=== PATIENT | female | born 1985 | race Caucasian/White ===

== ENCOUNTER 2020-09-03 17:45 | Inpatient (IN) | payer OTHER, SELFPAY ==
--- NOTE | ~2020-09-03 | CT_ITS ---
EXAMINATION: CT ABDOMEN AND PELVIS WITH CONTRAST CLINICAL INFORMATION: Epigastric abdominal pain COMPARISON: CT abdomen pelvis 07/10/2018 TECHNIQUE: Multidetector volumetric images were obtained from the superior aspect of the liver through the pubic symphysis following administration 85 mL of Omnipaque 350 intravenous contrast. Sagittal and coronal reformatted images were obtained on the technologist's workstation. Oral contrast: No This CT examination was performed using dose optimization techniques as appropriate, variously including the following: *Automated exposure control *Adjustment of mA and/or kV according to patient size (this includes techniques or standardized protocols for targeted exams where dose is matched to indication/reason for exam; i.e. extremities or head) *Use of iterative reconstruction technique DLP: 586 mGy-cm FINDINGS: LUNG BASES: The visualized lung bases are unremarkable. 2 small micronodules noted at the lung bases largest measuring 3 mm on the left (4:31). LIVER, GALLBLADDER, AND BILIARY TREE: The liver is normal in size, shape, and attenuation. No focal hepatic lesion or biliary ductal dilatation is present. Status post cholecystectomy PANCREAS: Unremarkable. SPLEEN: Unremarkable. Small splenule is present. ADRENAL GLANDS: Unremarkable. KIDNEYS AND URETERS: The kidneys are normal in size, shape, and attenuation. No hydronephrosis, hydroureter, or calculi seen. No perinephric stranding. BLADDER: Unremarkable. GASTROINTESTINAL TRACT: The small and large bowel are unremarkable. The appendix is unremarkable. ABDOMINAL WALL: No significant hernia is appreciated. There is mild diastases of the rectus muscles above the umbilicus. LYMPH NODES: No retroperitoneal lymphadenopathy. Small bilateral inguinal lymph nodes are seen. VASCULAR: Unremarkable. PELVIC VISCERA: An IUD is in good position in an anteverted uterus. A right ovarian cyst is present measuring 3.1 x 2.7 x 3.1 cm . The left ovary appears unremarkable. No free intraperitoneal fluid is present. OSSEOUS STRUCTURES: Unremarkable. CT/CT abdomen pelvis w con IMPRESSION: 1. An etiology for the patient's acute epigastric abdominal pain has not been found. 2. Wall only 2 small pulmonary micronodules, cholecystectomy, IUD in the uterus and right ovarian cyst. This cyst needs no further follow-up.
--- NOTE | ~2020-09-03 | CT_ITS ---
EXAMINATION: CT ANGIOGRAM OF THE CHEST WITH AND WITHOUT CONTRAST (CT PULMONARY ANGIOGRAM FOR PE) CLINICAL INFORMATION: Reason for Exam tachy; positive ddimer COMPARISON: None TECHNIQUE: Prior to contrast administration, noncontrast localization images were obtained. Subsequently, multidetector volumetric imaging was performed from the thoracic inlet to below the diaphragms following the administration of 65 mL Omnipaque 350 intravenous contrast. No contrast reaction reported Sagittal, coronal, and MIP oblique sagittal reformatted images were obtained on the CT workstation, uploaded to PACS, and reviewed. This CT examination was performed using dose optimization techniques as appropriate, variously including the following: *Automated exposure control *Adjustment of mA and/or kV according to patient size (this includes techniques or standardized protocols for targeted exams where dose is matched to indication/reason for exam; i.e. extremities or head) *Use of iterative reconstruction technique Total exam dose-length product 333 mGy-cm FINDINGS: QUALITY OF STUDY/CONTRAST BOLUS: Satisfactory. PULMONARY ARTERIES: No central or segmental pulmonary emboli. THORACIC AORTA: No aneurysm or dissection. LUNG: No regions of consolidation bilaterally. There is a 3 mm left lower lobe nodule on image 281/496 laterally, unchanged from 07/10/2018 and most consistent with a benign etiology. Calcified granuloma is noted in the right middle lobe. PLEURA: No pleural effusion or pneumothorax. MEDIASTINUM: Thyroid gland appears unremarkable. There are subcentimeter mediastinal lymph nodes within the range of normal variation. Cardiac size is within normal limits; no pericardial effusion. No evidence of septal bowing or right heart strain. CHEST WALL/AXILLA: No axillary or internal mammary lymphadenopathy. OSSEOUS STRUCTURES: No acute or suspicious osseous abnormality. UPPER ABDOMEN: Patient is status post cholecystectomy. No reflux of contrast into the hepatic veins to suggest elevated right heart pressures. CT/CT angio chest PE protocol IMPRESSION: No pulmonary embolus identified. VTE: negative
[2020-09-03 19:02] VITALS: BP 166/77; PULSE 121; RESP 20; TEMP 37.2; O2SAT 99; BMI 34.0
[2020-09-03 19:39] VITALS: BP 161/74; PULSE 116; RESP 16; O2SAT 99
[2020-09-03 19:44] LABS: Glucose, Whole Blood 327 mg/dL (60-115)
[2020-09-03 20:01] LABS: Basophils Percent Auto 0.1 % (0-2); Hemoglobin 13.4 g/dl (12.0-16.0); Imm Gran Abs Auto 0.06 X10*3/uL (0.00-0.03); Imm Gran Pct Auto 0.3 % (0.0-0.4); Lymphocytes Absolute Auto 0.6 X10*3/uL (1.2-4.9); Lymphocytes Percent Auto 3.3 % (20-40); MANUAL DIFF FLAG SCAN; Mean Corpuscular HGB Conc 31.9 g/dl (31.0-35.0); Mean Corpuscular Hemoglobin 26.1 pg (27.0-33.0); Mean Corpuscular Volume 81.7 fL (80-98); Mean Platelet Volume 10.3 fL (9.4-12.3); Monocytes Absolute Auto 0.4 X10*3/uL (0.1-1.2); Monocytes Percent Auto 2.5 % (2-11); Neutrophils Absolute Auto 16.3 X10*3/uL (2.0-8.3); Neutrophils Percent Auto 93.8 % (45-73); Platelet Count 415 X10*3/uL (160-400); Red Blood Count 5.14 X10*6/uL (4.20-5.50); Red Cell Distribution Width 15.2 % (11.0-16.0); SCAN SMEAR FLAG 1; White Blood Count 17.3 X10*3/uL (4.8-10.8)
[2020-09-03 20:20] LABS: SLIDE REVIEW VERIFIED
[2020-09-03 20:44] VITALS: BP 169/95; PULSE 101; RESP 17; TEMP 37.5; O2SAT 100
[2020-09-03] MEDS: 0.9 % Sodium Chloride 1,000 ML 999 ML IVCONT ×2 (20:49→23:23)
[2020-09-03 21:27] LABS: Glucose Urine UA >=1000 MG/DL (NEG); Leukocyte Esterase Urine NEG (NEG); Nitrite Urine NEG (NEG); Urine Blood 1+ (NEG); Urine Ketones 5 MG/DL (NEG); Urine Protein 3+ MG/DL (NEG-TRACE)
[2020-09-03 21:28] LABS: Appearance Urine CLEAR; Color Urine YELLOW; UPreg QC Valid YES; Urine Pregnancy NEGATIVE (NEGATIVE)
[2020-09-03 21:31] LABS: Alanine Aminotransferase 39 U/L (0-31); Albumin Level 4.8 g/dL (3.5-5.0); Alkaline Phosphatase 179 U/L (39-117); Anion Gap 18 (12-20); Aspartate Amino Transferase 19 U/L (5-31); Bilirubin Direct 0.3 mg/dL (0.0-0.5); Bilirubin Total 0.4 mg/dL (0.0-1.0); Calcium 9.5 mg/dL (8.4-10.2); Carbon Dioxide 23 mmol/L (22-29); Chloride 102 mmol/L (96-108); Creatinine Clr Calc Pharmacy 83.8; Estimated Glomerular Filt Rate > 60; Glucose Random 371 mg/dL (60-115); Lipase < 4 U/L (8-78); Potassium 4.1 mmol/L (3.3-5.1); Sodium 139 mmol/L (135-145); Total Protein 8.8 g/dL (6.5-8.0)
[2020-09-03 21:36] LABS: WBC Urine 0-2 /HPF (0-4)
[2020-09-03 21:37] LABS: Blood Urea Nitrogen 11 mg/dL (9-16)
[2020-09-03 21:37] LABS: Squamous Epithelial Cell Urine TRACE /LPF
--- NOTE | 2020-09-03 21:46 | ED.ABDPAIN ---
HPI - Abdominal Pain General Chief Complaint: Abdominal Pain Stated Complaint: vomiting Time Seen by Provider: 09/03/20 20:10 Source: patient Mode of arrival: ambulatory Limitations: no limitations History of Present Illness HPI narrative: Patient comes emergency room complaining of abdominal pain, vomiting. Patient states that all her symptoms started this morning. Patient states she has had this in the past, has history of gastroparesis due to type 1 diabetes, patient states she shut off her insulin pump because she has not been eating. Patient took at home Zofran and Reglan but did not work. Related Data Allergies Allergy/AdvReac Type Severity Reaction Status Date / Time diphenhydramine Allergy Mild ITCHY Unverified 12/12/19 17:10 [From BENADRYL] ANXIOUS ciprofloxacin [From CIPRO] Allergy Unknown UNKNOWN Unverified 12/12/19 17:10 From CIPRO Allergy Unknown UNKNOWN Uncoded 12/12/19 17:10 SHELLFISH Allergy Unknown UNKNOWN Uncoded 12/12/19 17:10 Shellfish Allergy Unknown Uncoded 08/01/18 00:00 Review of Systems Review of Systems Constitutional : No Weight loss, No Fever, No Chills, No Night Sweats, No Fatigue, No Malaise ENT/Mouth : No Hearing loss, No Ear Pain, No Nasal Congestion, No Sinus Pain, No Hoarseness, No sore throat, No Rhinorrhea, No Swallowing Difficulty Eyes: No Eye Pain, No Swelling, No Redness, No Foreign Body, No Discharge, No Vision Changes Cardiovascular : No Chest Pain, No SOB, No Dyspnea on Exertion, No Orthopnea, No Edema, No Palpitations Respiratory : No Cough, No Sputum, No Wheezing, No Smoke Exposure, No Dyspnea Gastrointestinal : Complaining of nausea and vomiting, No Diarrhea, No Constipation, complaining of diffuse abdominal pain, worse in the epigastric area, No Hematochezia, No Melena Genitourinary : no irregular bleeding, No Dysuria, No Urinary Frequency, No Hematuria, No Urinary Incontinence, No Urgency, No Flank Pain, No Urinary Flow Changes, No Hesitancy Musculoskeletal : No joint pain, No Myalgias, No Joint Swelling Skin : No Skin Lesions, No rash Neuro : No Weakness, No Numbness, No Paresthesias, No Loss of Consciousness, No Dizziness, No Headache Psych : No Anxiety/Panic, No Depression, No SI/HI/AH/VH, No Social Issues, Heme/Lymph: No Bruising, No Bleeding,No Lymphadenopathy Endocrine : No Polyuria, No Polydipsia, No Temperature Intolerance Physical Exam Vital Signs: Vital Signs: Last Vital Signs Temp 100.4 F 09/04/20 02:17 Pulse 129 H 09/04/20 02:17 Resp 17 09/04/20 02:17 BP 127/69 09/04/20 02:17 Pulse Ox 96 09/04/20 02:17 Body Mass Index 34.0 Appearance: Alert. Oriented X3. No acute distress. Looks uncomfortable Eyes: Pupils equal, round and reactive to light. ENT: Pharynx normal. Neck: Normal inspection. Neck supple. No lymph nodes noted. No crepitus CVS: Normal heart rate and rhythm. Pulses normal. Normal S1 and S2 Respiratory: No respiratory distress. Breath sounds normal. No Wheezing. No rales Abdomen: Soft , mild pain to palpation in the epigastric area. No rigidity. No distention. Skin: Skin warm and dry. Normal skin color. Normal skin turgor. Extremities: No lower extremity edema. No lower extremity edema. No Lacerations. No Rash Neuro: Oriented X 3. No motor deficit. No sensory deficit. Moving all extermities. No slurred speech. Course Course Course Narrative: Patient remains tachycardic, nauseous and vomiting despite multiple doses of IV fluids and different nausea medications. Patient denies chest pain, no shortness of breath. Abdominal pain improved but she still vomiting. I discussed the above-mentioned with our hospitalist, patient being admitted. MDM - Abdominal Pain Lab Data Result diagrams: 09/04/20 02:29 09/03/20 20:42 Labs: Lab Results 09/03/20 09/03/20 09/03/20 Range/Units 19:40 19:53 20:42 WBC 17.3 H (4.8-10.8) X10*3/uL RBC 5.14 (4.20-5.50) X10*6/uL Hgb 13.4 (12.0-16.0) g/dl Hct 42.0 (37-47) % MCV 81.7 (80-98) fL MCH 26.1 L (27.0-33.0) pg MCHC 31.9 (31.0-35.0) g/dl RDW 15.2 (11.0-16.0) % Plt Count 415 H (160-400) X10*3/uL MPV 10.3 (9.4-12.3) fL Immature Gran % (Auto) 0.3 (0.0-0.4) % Neut % (Auto) 93.8 H (45-73) % Lymph % (Auto) 3.3 L (20-40) % [place] % (Auto) 2.5 (2-11) % Eos % (Auto) 0.0 (0-4) % Baso % (Auto) 0.1 (0-2) % Lymph # (Auto) 0.6 L (1.2-4.9) X10*3/uL [place] # (Auto) 0.4 (0.1-1.2) X10*3/uL Eos # (Auto) 0.0 (0.0-0.4) X10*3/uL Baso # (Auto) 0.0 (0.0-0.2) X10*3/uL Abs Immat Gran (auto) 0.06 H (0.00-0.03) X10*3/uL Absolute Neuts (auto) 16.3 H (2.0-8.3) X10*3/uL Absolute Nucleated RBC 0.000 (0.0-0.012) X10*3/uL Nucleated RBC % (auto) 0.0 (0.0-0.2) /100WBC Smear Tech's Comments VERIFIED Sodium 139 (135-145) mmol/L Potassium 4.1 (3.3-5.1) mmol/L Chloride 102 (96-108) mmol/L Carbon Dioxide 23 (22-29) mmol/L Anion Gap 18 (12-20) BUN 11 (9-16) mg/dL Creatinine 0.87 (0.5-1.4) mg/dL Estim Creat Clear Calc 83.8 Estimated GFR > 60 POC Glucose 327 H (60-115) mg/dL Random Glucose 371 H* (60-115) mg/dL Calcium 9.5 (8.4-10.2) mg/dL Total Bilirubin 0.4 (0.0-1.0) mg/dL Direct Bilirubin 0.3 (0.0-0.5) mg/dL AST 19 (5-31) U/L ALT 39 H (0-31) U/L Alkaline Phosphatase 179 H (39-117) U/L Total Protein 8.8 H (6.5-8.0) g/dL Albumin 4.8 (3.5-5.0) g/dL Lipase < 4 L (8-78) U/L Urine Color Urine Appearance Urine pH (5.0-8.0) Ur Specific Cranberry (1.005-1.025) Urine Protein (NEG-TRACE) MG/DL Urine Glucose (UA) (NEG) MG/DL Urine Ketones (NEG) MG/DL Urine Blood (NEG) Urine Nitrite (NEG) Ur Leukocyte Esterase (NEG) Urine RBC (0) /HPF Urine WBC (0-4) /HPF Ur Squamous Epith Cells /LPF Urine Bacteria /LPF Urine Test (NEGATIVE) Acetone, Qual Negative (Negative) COVID-19 (THO) (Negative) COVID-19 Clin Com 09/03/20 09/03/20 09/04/20 Range/Units 21:17 21:17 00:14 WBC (4.8-10.8) X10*3/uL RBC (4.20-5.50) X10*6/uL Hgb (12.0-16.0) g/dl Hct (37-47) % MCV (80-98) fL MCH (27.0-33.0) pg MCHC (31.0-35.0) g/dl RDW (11.0-16.0) % Plt Count (160-400) X10*3/uL MPV (9.4-12.3) fL Immature Gran % (Auto) (0.0-0.4) % Neut % (Auto) (45-73) % Lymph % (Auto) (20-40) % [place] % (Auto) (2-11) % Eos % (Auto) (0-4) % Baso % (Auto) (0-2) % Lymph # (Auto) (1.2-4.9) X10*3/uL [place] # (Auto) (0.1-1.2) X10*3/uL Eos # (Auto) (0.0-0.4) X10*3/uL Baso # (Auto) (0.0-0.2) X10*3/uL Abs Immat Gran (auto) (0.00-0.03) X10*3/uL Absolute Neuts (auto) (2.0-8.3) X10*3/uL Absolute Nucleated RBC (0.0-0.012) X10*3/uL Nucleated RBC % (auto) (0.0-0.2) /100WBC Smear Tech's Comments Sodium (135-145) mmol/L Potassium (3.3-5.1) mmol/L Chloride (96-108) mmol/L Carbon Dioxide (22-29) mmol/L Anion Gap (12-20) BUN (9-16) mg/dL Creatinine (0.5-1.4) mg/dL Estim Creat Clear Calc Estimated GFR POC Glucose 268 H (60-115) mg/dL Random Glucose (60-115) mg/dL Calcium (8.4-10.2) mg/dL Total Bilirubin (0.0-1.0) mg/dL Direct Bilirubin (0.0-0.5) mg/dL AST (5-31) U/L ALT (0-31) U/L Alkaline Phosphatase (39-117) U/L Total Protein (6.5-8.0) g/dL Albumin (3.5-5.0) g/dL Lipase (8-78) U/L Urine Color YELLOW Urine Appearance CLEAR Urine pH 6.0 (5.0-8.0) Ur Specific Cranberry 1.020 (1.005-1.025) Urine Protein 3+ H (NEG-TRACE) MG/DL Urine Glucose (UA) >=1000 H (NEG) MG/DL Urine Ketones 5 (NEG) MG/DL Urine Blood 1+ H (NEG) Urine Nitrite NEG (NEG) Ur Leukocyte Esterase NEG (NEG) Urine RBC 1-4 (0) /HPF Urine WBC 0-2 (0-4) /HPF Ur Squamous Epith Cells TRACE /LPF Urine Bacteria NONE /LPF Urine Test NEGATIVE (NEGATIVE) Acetone, Qual (Negative) COVID-19 (THO) (Negative) COVID-19 Clin Com 09/04/20 Range/Units 01:26 WBC (4.8-10.8) X10*3/uL RBC (4.20-5.50) X10*6/uL Hgb (12.0-16.0) g/dl Hct (37-47) % MCV (80-98) fL MCH (27.0-33.0) pg MCHC (31.0-35.0) g/dl RDW (11.0-16.0) % Plt Count (160-400) X10*3/uL MPV (9.4-12.3) fL Immature Gran % (Auto) (0.0-0.4) % Neut % (Auto) (45-73) % Lymph % (Auto) (20-40) % [place] % (Auto) (2-11) % Eos % (Auto) (0-4) % Baso % (Auto) (0-2) % Lymph # (Auto) (1.2-4.9) X10*3/uL [place] # (Auto) (0.1-1.2) X10*3/uL Eos # (Auto) (0.0-0.4) X10*3/uL Baso # (Auto) (0.0-0.2) X10*3/uL Abs Immat Gran (auto) (0.00-0.03) X10*3/uL Absolute Neuts (auto) (2.0-8.3) X10*3/uL Absolute Nucleated RBC (0.0-0.012) X10*3/uL Nucleated RBC % (auto) (0.0-0.2) /100WBC Smear Tech's Comments Sodium (135-145) mmol/L Potassium (3.3-5.1) mmol/L Chloride (96-108) mmol/L Carbon Dioxide (22-29) mmol/L Anion Gap (12-20) BUN (9-16) mg/dL Creatinine (0.5-1.4) mg/dL Estim Creat Clear Calc Estimated GFR POC Glucose (60-115) mg/dL Random Glucose (60-115) mg/dL Calcium (8.4-10.2) mg/dL Total Bilirubin (0.0-1.0) mg/dL Direct Bilirubin (0.0-0.5) mg/dL AST (5-31) U/L ALT (0-31) U/L Alkaline Phosphatase (39-117) U/L Total Protein (6.5-8.0) g/dL Albumin (3.5-5.0) g/dL Lipase (8-78) U/L Urine Color Urine Appearance Urine pH (5.0-8.0) Ur Specific Cranberry (1.005-1.025) Urine Protein (NEG-TRACE) MG/DL Urine Glucose (UA) (NEG) MG/DL Urine Ketones (NEG) MG/DL Urine Blood (NEG) Urine Nitrite (NEG) Ur Leukocyte Esterase (NEG) Urine RBC (0) /HPF Urine WBC (0-4) /HPF Ur Squamous Epith Cells /LPF Urine Bacteria /LPF Urine Test (NEGATIVE) Acetone, Qual (Negative) COVID-19 (THO) Negative (Negative) COVID-19 Clin Com See Note Imaging Data CT scan - abdomen: Radiologist's impression: FINDINGS: LUNG BASES: The visualized lung bases are unremarkable. 2 small micronodules noted at the lung bases largest measuring 3 mm on the left (4:31). LIVER, GALLBLADDER, AND BILIARY TREE: The liver is normal in size, shape, and attenuation. No focal hepatic lesion or biliary ductal dilatation is present. Status post cholecystectomy PANCREAS: Unremarkable. SPLEEN: Unremarkable. Small splenule is present. ADRENAL GLANDS: Unremarkable. KIDNEYS AND URETERS: The kidneys are normal in size, shape, and attenuation. No hydronephrosis, hydroureter, or calculi seen. No perinephric stranding. BLADDER: Unremarkable. GASTROINTESTINAL TRACT: The small and large bowel are unremarkable. The appendix is unremarkable. ABDOMINAL WALL: No significant hernia is appreciated. There is mild diastases of the rectus muscles above the umbilicus. LYMPH NODES: No retroperitoneal lymphadenopathy. Small bilateral inguinal lymph nodes are seen. VASCULAR: Unremarkable. PELVIC VISCERA: An IUD is in good position in an anteverted uterus. A right ovarian cyst is present measuring 3.1 x 2.7 x 3.1 cm . The left ovary appears unremarkable. No free intraperitoneal fluid is present. OSSEOUS STRUCTURES: Unremarkable. CT/CT abdomen pelvis w con IMPRESSION: 1. An etiology for the patient's acute epigastric abdominal pain has not been found. 2. Wall only 2 small pulmonary micronodules, cholecystectomy, IUD in the uterus and right ovarian cyst. This cyst needs no further follow-up. ECG Data Attestation: I personally reviewed and interpreted this ECG as follows: (Sinus tachycardia, heart rate 118, no ST segment depression or elevation, no T-wave inversion, QTC 479) Discharge Plan Discharge Clinical Impression: Acute hyperglycemia Nausea & vomiting Qualifiers: Vomiting type: unspecified Vomiting Intractability: unspecified Qualified Code(s): R11.2 - Nausea with vomiting, unspecified Patient Disposition: Admitted As Inpatient [facility] Past Medical History Medical History Anxiety delivery delivered Depression Diabetes type I Gastroparesis Insomnia PTSD (post-traumatic stress disorder) Surgical History Hx of cholecystectomy Social History Social History Advance Directives: No Advance Directives Information Provided: No Patient : No
[2020-09-03] MEDS: Insulin Regular, Human 100 UNIT/ML 3 ML VIAL 10 UNIT IVPUSH (22:16)
[2020-09-03 22:18] VITALS: RESP 16
[2020-09-03] MEDS: Morphine Sulfate 2 MG/ML CARTRIDGE IVPUSH (22:18)
[2020-09-03] MEDS: Prochlorperazine Edisylate 10 MG/2 ML VIAL IVPUSH (22:22)
[2020-09-03] MEDS: iohexoL 350 MG/ML 100 ML INFUS..BTL 85 ML IV (23:03)
[2020-09-03 23:22] VITALS: RESP 16
--- NOTE | 2020-09-03 23:33 | PC.NURSE ---
POC 266, taken by pt via her own insulin pump notified
[2020-09-03 23:36] LABS: Acetone, serum QL Negative (Negative)
[2020-09-04] VITALS (8 sets, daily range): BP systolic 127–170; BP diastolic 69–91; PULSE 87–130; RESP 16–20; TEMP 36.1–38; O2SAT 96–100
--- NOTE | 2020-09-04 00:15 | PC.NURSE ---
JUAN FORD AWARE OF PATIENT HIGH HEART RATE .
[2020-09-04 00:19] LABS: Glucose, Whole Blood 268 mg/dL (60-115)
[2020-09-04] MEDS: Metoclopramide HCl 10 MG/2 ML VIAL IVPUSH (01:09)
[2020-09-04] MEDS: ondansetron HCL 4 MG/2 ML VIAL IVPUSH (01:22)
[2020-09-04] MEDS: 0.9 % Sodium Chloride 1,000 ML 999 ML IVCONT (01:45)
--- NOTE | 2020-09-04 01:49 | P.HPHOSP_ITS ---
History of Present Illness Date of Service: 09/04/20 Chief Complaint: Nausea and vomiting 35-year-old female with a past medical history of type 1 diabetes on insulin pump, anxiety, depression, PTSD, recent -delivered via , 4 months presented to the hospital with a chief complaint of nausea vomiting and epigastric discomfort for the past 1 day. Reports that she is unable to keep anything down. Patient reports that her insulin pump is running at basal rate and has not received any bolus doses today. Denies any chest pain lightheadedness dizziness. Denies eating outside. Denies any recent travel sick contacts. Patient reported palpitations today. Denies any shortness of breath or dyspnea on exertion. Denies any urinary symptoms. Denies any diarrhea. Review of all other systems is negative except mentioned above ER course: Per ER team patient on presentation noted to have a fingerstick glucose of 379, normal anion gap, given regular insulin 10 IV push; patient was noted to be tachycardic. CT abdomen with contrast showed no acute intra-abdominal pathology. Noted to have mild elevated transaminases. Electrolytes within normal limits creatinine within normal limits. Patient given IV fluids. Patient still noted to be tachycardic. Patient failed p.o. challenge. Admitted to the hospital for further management. [facility] Medical History Anxiety delivery delivered Depression Diabetes type I Gastroparesis Insomnia PTSD (post-traumatic stress disorder) Surgical History Hx of cholecystectomy Social History Household Members: Spouse, Family and Children Housing: Apartment Do you presently have visiting nurse or other home services: No Patient Tobacco Use Status: Never used Tobacco Use of substances other than those prescribed or required for medical reasons: No Currently Displaying Signs/Symptoms of Drug Intoxication Withdrawal: No Have you been hit, kicked, punched, or otherwise hurt by someone within the past year? If so, by whom?: No Do you feel safe in your current relationship?: Yes Is there a partner from a previous relationship who is making you feel unsafe now?: No Are you made to feel afraid or neglected: No Advance Directives: No Advance Directives Information Provided: No Do you have thoughts of harming others: None Do you have a plan to hurt others: No Plan Recently lost weight without trying: No How much weight loss: Not applicable Eating poorly because of decreased appetite: No Nutrition screen score: 0 Nutrition Risks: No Nutritional Risk Patient : No : No Poor oral hygiene: No service: No Meds Allergies Allergy/AdvReac Type Severity Reaction Status Date / Time diphenhydramine Allergy Mild ITCHY Verified 09/06/20 12:00 [From BENADRYL] ANXIOUS ciprofloxacin [From CIPRO] Allergy Unknown Anaphylaxis Verified 09/06/20 12:00 SHELLFISH Allergy Severe Anaphylaxis Uncoded 09/06/20 12:00 Shellfish Allergy Severe Anaphylaxis Uncoded 09/06/20 12:00 From CIPRO Allergy Unknown Anaphylaxis Uncoded 09/06/20 12:00 Active Medications: Current Medications Generic Name Dose Route Start Last Admin Trade Name Freq PRN Reason Stop Dose Admin Acetaminophen 650 mg 09/04/20 01:42 Acetaminophen Supp 650 Mg Supp.Rect DE Q6H PRN Pain, Mild (Pain Scale 1-3) Sodium Chloride 1,000 mls @ 999 mls/hr 09/04/20 01:41 Ns IVCONT 09/04/20 02:41 .Q1H1M ONE Dextrose/Sodium Chloride 1,000 mls @ 100 mls/hr 09/04/20 01:45 D51/2ns IVCONT .Q10H [facility] Insulin Human Lispro 0 unit 09/04/20 07:30 Insulin Lispro 100 Unit/Ml 3 Ml Vial SUBCUT QIDACHS [facility] Protocol Ondansetron HCl 4 mg 09/04/20 01:42 Ondansetron Hcl 4 Mg/2 Ml Vial IVPUSH Q8H PRN Nausea and Vomiting Sodium Chloride 3 ml 09/04/20 08:00 0.9 % Sodium Chloride Flush 3 Ml Syringe IVFLUSH QSHIFT [facility] Home Medications Medication Instructions Recorded Confirmed Last Taken Type clonidine HCl 2 - 3 tab PO BEDTIME PRN 09/04/20 09/04/20 09/02/20 History insulin lispro [Humalog U-100 0 - 67 unit SUBCUT DAILY 09/04/20 09/04/20 Unknown History Insulin] insulin pump cartridge [Omnipod 09/04/20 09/04/20 Unknown History Dash 5 Pack Pod] metoclopramide HCl 1 tab PO QID PRN 09/04/20 09/04/20 Unknown History quetiapine 0.5 tab PO BEDTIME PRN 09/04/20 09/04/20 Unknown History Physical Exam Vital Signs and Narrative: Vital Signs: Last Vital Signs Temp 98.2 F 09/04/20 00:00 Pulse 130 H 09/04/20 00:00 Resp 16 09/04/20 00:00 BP 148/83 H 09/04/20 00:00 Pulse Ox 98 09/04/20 00:00 Body Mass Index 34.0 Gen: Appears be in no acute distress HEENT: NCAT, Moist mucosa. Pulmonary: Vesicular breath sounds, fair air entry CVS: Normal S1-S2 Abdomen: BS+, Soft, tender in epigastrium Extremities: Warm well perfused Neuro: Alert and awake. Results Labs CBC and Chem 7: 09/06/20 06:31 09/06/20 06:31 Labs: Laboratory Results - last 24 hr 09/03/20 09/03/20 09/03/20 19:40 19:53 20:42 MCV 81.7 MCH 26.1 L MCHC 31.9 RDW 15.2 Plt Count 415 H MPV 10.3 Immature Gran % (Auto) 0.3 Neut % (Auto) 93.8 H Lymph % (Auto) 3.3 L [place] % (Auto) 2.5 Eos % (Auto) 0.0 Baso % (Auto) 0.1 Lymph # (Auto) 0.6 L [place] # (Auto) 0.4 Eos # (Auto) 0.0 Baso # (Auto) 0.0 Abs Immat Gran (auto) 0.06 H Absolute Neuts (auto) 16.3 H Absolute Nucleated RBC 0.000 Nucleated RBC % (auto) 0.0 Smear Tech's Comments VERIFIED Anion Gap 18 Estim Creat Clear Calc 83.8 Estimated GFR > 60 POC Glucose 327 H Random Glucose 371 H* Calcium 9.5 Total Bilirubin 0.4 Direct Bilirubin 0.3 AST 19 ALT 39 H Alkaline Phosphatase 179 H Total Protein 8.8 H Albumin 4.8 Lipase < 4 L Urine Color Urine Appearance Urine pH Ur Specific [place] Urine Protein Urine Glucose (UA) Urine Ketones Urine Blood Urine Nitrite Ur Leukocyte Esterase Urine RBC Urine WBC Ur Squamous Epith Cells Urine Bacteria Urine Test Acetone, Qual Negative 09/03/20 09/03/20 09/04/20 21:17 21:17 00:14 MCV MCH MCHC RDW Plt Count MPV Immature Gran % (Auto) Neut % (Auto) Lymph % (Auto) [place] % (Auto) Eos % (Auto) Baso % (Auto) Lymph # (Auto) [place] # (Auto) Eos # (Auto) Baso # (Auto) Abs Immat Gran (auto) Absolute Neuts (auto) Absolute Nucleated RBC Nucleated RBC % (auto) Smear Tech's Comments Anion Gap Estim Creat Clear Calc Estimated GFR POC Glucose 268 H Random Glucose Calcium Total Bilirubin Direct Bilirubin AST ALT Alkaline Phosphatase Total Protein Albumin Lipase Urine Color YELLOW Urine Appearance CLEAR Urine pH 6.0 Ur Specific [place] 1.020 Urine Protein 3+ H Urine Glucose (UA) >=1000 H Urine Ketones 5 Urine Blood 1+ H Urine Nitrite NEG Ur Leukocyte Esterase NEG Urine RBC 1-4 Urine WBC 0-2 Ur Squamous Epith Cells TRACE Urine Bacteria NONE Urine Test NEGATIVE Acetone, Qual Imaging Radiologist's Impressions: Impressions Abdomen/Pelvis CT 09/03/20 21:44 IMPRESSION: 1. An etiology for the patient's acute epigastric abdominal pain has not been found. 2. Wall only 2 small pulmonary micronodules, cholecystectomy, IUD in the uterus and right ovarian cyst. This cyst needs no further follow-up. Assessment and Plan (1) Nausea & vomiting: Qualifiers: Vomiting Intractability: unspecified Vomiting type: unspecified Qualified Code(s): R11.2 - Nausea with vomiting, unspecified Status: Acute 35-year-old female with a past medical history of type 1 diabetes on insulin pump, 4 months , for delivery recently, anxiety, depression, PTSD presented to the hospital with a chief complaint of nausea/vomiting/epigastric discomfort/Will oral intake for 1 day. Admitted for further management. Hyperglycemia: Patient does not seem to be in DKA. Patient received 10 units of regular insulin IV push in the ER, IV fluids. Fingerstick glucose improving. Patient has stopped her insulin pump prior to coming to the hospital. Type 1 diabetes: Patient on insulin pump, basal rate is running.insulin sliding scale. Once patient starts to eat, patient can be resumed on home insulin pump regimen including both doses. Nausea/vomiting/epigastric discomfort: Patient noted to have mild elevated transaminitis. Will obtain acute hepatitis panel. CT abdomen showed no acute pathology. Lipase within normal limits. Supportive care Patient is on Seroquel at home. Will check EKG to check for QTC. Tachycardia: Given 4 months ; will obtain D-dimer, keep the patient on telemetry, cycle cardiac enzymes, echocardiogram. DVT prophylaxis: SCD boots Code status: Full code
[2020-09-04 01:52] LABS: COVID-19 Test Negative (Negative); IDNOW Serial# 9DD0AD1C
--- NOTE | 2020-09-04 02:19 | PC.NURSE ---
JUAN DONOVAN AWARE OF PATIENT HIGH HEART RATE .
--- NOTE | 2020-09-04 02:27 | PC.NURSE ---
hospitalist at bedside for evaluation
[2020-09-04 02:33] LABS: MANUAL DIFF FLAG NO
[2020-09-04 02:34] LABS: Basophils Percent Auto 0.1 % (0-2); Hematocrit 32.2 % (37-47); Hemoglobin 10.5 g/dl (12.0-16.0); Imm Gran Abs Auto 0.03 X10*3/uL (0.00-0.03); Imm Gran Pct Auto 0.2 % (0.0-0.4); Lymphocytes Absolute Auto 0.7 X10*3/uL (1.2-4.9); Lymphocytes Percent Auto 4.9 % (20-40); Mean Corpuscular HGB Conc 32.6 g/dl (31.0-35.0); Mean Corpuscular Hemoglobin 26.3 pg (27.0-33.0); Mean Corpuscular Volume 80.7 fL (80-98); Mean Platelet Volume 9.4 fL (9.4-12.3); Monocytes Absolute Auto 0.7 X10*3/uL (0.1-1.2); Monocytes Percent Auto 5.2 % (2-11); Neutrophils Absolute Auto 12.1 X10*3/uL (2.0-8.3); Neutrophils Percent Auto 89.6 % (45-73); Platelet Count 332 X10*3/uL (160-400); Red Blood Count 3.99 X10*6/uL (4.20-5.50); Red Cell Distribution Width 15.1 % (11.0-16.0); White Blood Count 13.5 X10*3/uL (4.8-10.8)
[2020-09-04 02:43] LABS: D Dimer 354 NG/ML
[2020-09-04 02:51] LABS: Glucose, Whole Blood 272 mg/dL (60-115)
[2020-09-04 03:03] LABS: Troponin-I High Sensitivity < 3.5 ng/L (<3.5-17.0)
[2020-09-04] MEDS: Dextrose 5 % and 0.45 % NaCl 1,000 ML 100 ML IVCONT ×3 (03:14→22:38)
[2020-09-04 03:17] LABS: Gamma Glutamyl Transpeptidase 218 U/L (7-33)
[2020-09-04 03:36] LABS: Blood Urea Nitrogen 9 mg/dL (9-16); Carbon Dioxide 23 mmol/L (22-29); Creatinine Clr Calc Pharmacy 107.3; Estimated Glomerular Filt Rate > 60; Glucose Random 301 mg/dL (60-115)
[2020-09-04 03:55] LABS: Troponin-I High Sensitivity < 3.5 ng/L (<3.5-17.0)
--- NOTE | 2020-09-04 04:20 | PC.NURSE ---
pt heart rate maintained in the 130's. hospitalist notified.
[2020-09-04 04:30] LABS: Anion Gap 15 (12-20); Chloride 108 mmol/L (96-108); Potassium 3.8 mmol/L (3.3-5.1); Sodium 141 mmol/L (135-145)
--- NOTE | 2020-09-04 04:52 | PC.NURSE ---
nurse to nurse report given to Marian MARTINEZ
[2020-09-04] MEDS: iohexoL 350 MG/ML 100 ML INFUS..BTL 65 ML IV (05:01)
[2020-09-04] MEDS: Metoprolol Tartrate 5 MG/5 ML VIAL IVPUSH (05:20)
[2020-09-04] MEDS: LORazepam 2 MG/ML VIAL 0.5 MG IVPUSH ×2 (05:54→11:41)
[2020-09-04 07:30] LABS: Glucose, Whole Blood 307 mg/dL (60-115)
--- NOTE | 2020-09-04 07:30 | CA_ITS ---
Transthoracic Echocardiogram Patient (Last, First, Middle): Horacio Toure, Gender: Female Date of : 1985 Age: 35 Procedure Date: 09/04/2020 Procedure Type: Transthoracic Echocardiogram Location: S3W Height: 152.4 cm Weight: 78.92 kg BSA: 1.76 m2 Heart Rate: bpm BP: 163 / 89 mmHg Software Validation Technician: MARYLIN Bowser MD: Maldonado Noonan MD Medical Equipment Sales: Antonio Gomez MD Symptoms: tachycardia; 4months Study Quality: Fair ECG Rhythm: Sinus Conclusions: - Technically borderline study, however all overall appears to be within normal limits Findings Left Ventricle Normal left ventricular size, thickness, and systolic function. The visually estimated ejection fraction is >70%. Spectral Doppler is indicative of a normal filling pattern. Right Ventricle Normal right ventricular cavity size. Atria The left atrium is normal in size. Interatrial shunt cannot be excluded. The right atrium was not well visualized. Aortic Valve Normal aortic valve structure and function. There is no aortic valve stenosis. There is no aortic valve regurgitation. Mitral Valve Normal mitral valve structure and function. There is trace mitral valve regurgitation. There is no mitral valve stenosis. Pulmonic Valve The pulmonic valve was not well visualized. There is trace to mild pulmonic valve regurgitation. Tricuspid Valve Likely normal tricuspid valve structure and function. There is trace tricuspid valve regurgitation. The right ventricular systolic pressure is normal. The right ventricular systolic pressure is 20 mmHg. Normal right atrial pressure. There is no evidence of pulmonary hypertension. Great Vessels All visible segments of the aorta are normal in size. The pulmonary artery was not well visualized. Venous The inferior vena cava is normal in size and collapses greater than 50% with inspiration. Pericardium/Pleural There is no evidence of pericardial effusion. Prior Study Comparison No prior study available for comparison. Recommendations, Care & Conclusions Recommend contrast in the future to improve endocardial definition. Measurements 2D Linear Measurements IVSd: 0.89 0.6-0.9/0.6-1.0 cm LVIDd: 3.54 3.9-5.3/4.2-5.9 cm LVIDs: 1.80 2.0-3.6 cm LVPWd: 0.88 0.7-1.1 cm Ao Root: 2.48 2.1-3.5 cm LV Mass: 109.24 67-162/88-224 g LVOT Diam: 2.00 3.0+(-)1.3 cm Mitral Valve MV Pk E: 1.15 MV PK A: 1.07 MV Decel Time: 117.50 E/A: 1.08 E'Lateral: 0.14 Decel Elk: 9.82 Aortic Valve AoV Pk [place]: 1.59 AoV Mn [place]: 1.06 AoV VTI: 0.27 AoV Pk Grad: 10.10 Aov Mn Grad: 4.90 LVOT LVOT Pk [place]: 1.45 LVOT Mn [place]: 0.83 LVOT VTI: 0.25 LVOT Pk Grad: 8.38 LVOT Mn Grad: 3.28 LVOT Diam: 2.00 LVOT Area: 3.13 Diastolic Function MV Pk E: 1.15 MV Pk A: 1.07 E/A: 1.08 E' Laterial: 0.14 Tricuspid Valve TR Pk [place]: 2.07 TR Pk Grad: 17.18 RA Press: 3.00 RVSP: 20.00 Great Vessels Aorta Ao Root-2D: 2.48 2.0-3.7 cm Ao Asc: 2.51 2.1-3.4 cm Ao Arch: 2.51 Updated in Other Vendor System with Status of Final Antonio Gomez MD electronically signed on 09/04/2020 2:02:21 PM with status of Final
--- NOTE | 2020-09-04 07:32 | ECG_ITS ---
Test Reason : PALPATIONS Blood Pressure : / mmHG Vent. Rate : 118 BPM Atrial Rate : 118 BPM P-R Int : 162 ms QRS Dur : 082 ms QT Int : 342 ms P-R-T Axes : 070 080 045 degrees QTc Int : 479 ms Sinus tachycardia Otherwise normal ECG When compared with ECG of 15-SEP-2019 17:32, Vent. rate has increased BY 40 BPM Referred By: Erika Shea Electronically Signed By:RUMA VIDAL MD
--- NOTE | 2020-09-04 07:58 | PM.EVENT ---
Event Note Date of Service: 09/04/20 Event Note: Seen in f/u for nausea and vomitting that is persistant, continue hydration, antiemtics, try pepcid
--- NOTE | 2020-09-04 08:04 | PM.EVENT ---
Event Note Date of Service: 09/04/20 Event Note: Her symptoms are likely from gastroparesis
[2020-09-04 08:37] LABS: HBS Num1 0.43 mIU/mL (0-7.99); Hepatitis A Antibody IgM 0.42 Index (0-0.79); ~Hepatitis A Antibody IgM Nonreactive (Nonreactive); ~Hepatitis B Surface Antibody NONREACTIVE (Nonreactive)
[2020-09-04] MEDS: Famotidine/PF 20 MG/2 ML VIAL IVPUSH ×2 (08:45→20:41)
[2020-09-04 09:00] LABS: HBc Num1 0.28 S/CO (0.00-0.79); HBsAGNum1 0.18 S/CO (0.00-0.99); Hepatitis B Core Antibody Nonreactive (Nonreactive); Hepatitis B Surface Antigen Negative (Negative); ~Hepatitis C Antibody Nonreactive (Nonreactive)
--- NOTE | 2020-09-04 10:41 | MHC.CM.PN ---
met with pt who is independent and working cm intervention is not indicated pt has own transport home
[2020-09-04] MEDS: Subcutaneous Insulin Pump 1 EACH SUBCUT (11:35)
[2020-09-04 11:37] LABS: Glucose, Whole Blood 273 mg/dL (60-115)
--- NOTE | 2020-09-04 12:23 | MHC.CLN ---
NUTRITION NOTE PATIENT IS CURRENTLY NPO DUE TO NAUSEA AND VOMITING. WHEN DIET ADVANCED, RECOMMEND DIABETIC DIET, 1500 KCAL. PROVIDES APPROXIMATELY 27 KCAL/KG CMW.
[2020-09-04 16:17] LABS: Glucose, Whole Blood 271 mg/dL (60-115)
[2020-09-04] MEDS: Ketorolac Tromethamine 15 MG/ML VIAL IVPUSH (17:38)
[2020-09-04] MEDS: 0.9 % Sodium Chloride Flush 3 ML SYRINGE IVFLUSH (17:39)
[2020-09-04 20:13] LABS: Glucose, Whole Blood 266 mg/dL (60-115)
[2020-09-05] MEDS: LORazepam 2 MG/ML VIAL 0.5 MG IVPUSH ×3 (01:00→16:36)
[2020-09-05] MEDS: Ketorolac Tromethamine 15 MG/ML VIAL IVPUSH ×2 (01:05→07:45)
[2020-09-05 03:54] VITALS: BP 170/82; PULSE 95; RESP 16; TEMP 36.4; O2SAT 100
[2020-09-05] MEDS: ondansetron HCL 4 MG/2 ML VIAL IVPUSH ×2 (05:49→15:03)
[2020-09-05 07:20] VITALS: BP 162/77; PULSE 101; RESP 17; TEMP 36.6; O2SAT 100
[2020-09-05] MEDS: Famotidine/PF 20 MG/2 ML VIAL IVPUSH (07:45)
[2020-09-05] MEDS: Dextrose 5 % and 0.45 % NaCl 1,000 ML 100 ML IVCONT ×2 (07:45→17:22)
[2020-09-05 07:50] LABS: Glucose, Whole Blood 279 mg/dL (60-115)
--- NOTE | 2020-09-05 10:26 | PC.NURSE ---
0730- Pt POC 279, insulin pump not working correctly. Pt removed pump. Dr. Dozier made aware. to order SSI. No new orders yet. Pt has no new complaints at this time.
[2020-09-05 11:28] LABS: Glucose, Whole Blood 283 mg/dL (60-115)
--- NOTE | 2020-09-05 11:29 | P.PNIM_ITS ---
Subjective Subjective Date of Service: 09/06/20 Interval History: Seen in follow-up for nausea vomiting that is intractable. She has also complained about some epigastric pain. Her insulin pump is no longer working. Review of Systems Gen: no fever Resp: no sob, no cough CV: no chest, no MULLER, no leg edema GI: Nausea and vomiting. Neuro: No confusion Physical Exam Vital Signs: Vital Signs: Last Vital Signs Temp 97.8 F 09/05/20 07:20 Pulse 101 H 09/05/20 07:20 Resp 17 09/05/20 07:20 BP 162/77 H 09/05/20 07:20 Pulse Ox 100 09/05/20 07:20 Body Mass Index 34.0 Const: Other: Constitutional Awake and Alert, No apparent distress Neck Supple, No lymphadenopathy Cardiovascular RRR, No M/R/G, S1 S2, No S3 S4, No pedal edema Respiratory Lungs clear, No respiratory distress Gastrointestinal some epigastric tenderness, Non-distended Skin No rash Neurological Alert & oriented x3 Psychological Appropriate affect Objective Data Current Medications Generic Name Dose Route Start Last Admin Trade Name Freq PRN Reason Stop Dose Admin Acetaminophen 650 mg 09/04/20 01:42 Acetaminophen Supp 650 Mg Supp.Rect SD Q6H PRN Pain, Mild (Pain Scale 1-3) Famotidine 20 mg 09/04/20 09:00 09/05/20 07:45 Famotidine/Pf 20 Mg/2 Ml Vial IVPUSH 20 mg BID EDWIN Administration Dextrose/Sodium Chloride 1,000 mls @ 100 mls/hr 09/04/20 01:45 09/05/20 07:45 D51/2ns IVCONT 100 mls/hr .Q10H EDWIN Administration Promethazine HCl 12.5 mg/ 50.5 mls @ 202 mls/hr 09/05/20 11:21 Sodium Chloride IV Q6H PRN nausea and vomitting Insulin Human Lispro 0 unit 09/05/20 11:30 Insulin Lispro 100 Unit/Ml 3 Ml Vial SUBCUT QIDACHS [facility] [place] Protocol Insulin Pump 1 each 09/04/20 11:30 09/05/20 07:46 Subcutaneous Insulin Pump SUBCUT [facility] Protocol Ketorolac Tromethamine 15 mg 09/04/20 17:11 09/05/20 07:45 Ketorolac Tromethamine 15 Mg/Ml Vial IVPUSH 15 mg Q6H PRN Administration Nausea and Vomiting Lorazepam 0.5 mg 09/04/20 03:01 09/05/20 07:45 Lorazepam 2 Mg/Ml Vial IVPUSH 0.5 mg Q6H PRN Administration nausea/vomiting Ondansetron HCl 4 mg 09/04/20 17:10 09/05/20 05:49 Ondansetron Hcl 4 Mg/2 Ml Vial IVPUSH 4 mg Q8H PRN Administration Nausea and Vomiting Pharmacy Consult 1 each 09/04/20 08:21 Consult Rx Perform Med Rec MISCELLANE ONCE PRN Consult order Sodium Chloride 3 ml 09/04/20 08:00 09/05/20 08:10 0.9 % Sodium Chloride Flush 3 Ml Syringe IVFLUSH Not Given QSHIFT EDWIN Labs CBC & Chem 7: 09/06/20 06:31 09/06/20 06:31 Assessment and Plan (1) Nausea & vomiting: Status: Acute (2) Diabetes mellitus with gastroparesis: Status: Acute Assessment and Plan: 35 year female with insulin dependent diabetes here with intractable nausea and vomitting with some epigastric pain, no CT finding to explain this she likely has diabetes gastroparesis plan: Symptomatic treatment with antiemetic, pepcid, IVF, pain meds, GI consult. Insulin by SSI if pump is no longer working, if sugars are very high, I will addd long acting insulin.
[2020-09-05 11:42] VITALS: BP 172/86; PULSE 98; RESP 18; TEMP 36.4; O2SAT 100
[2020-09-05] MEDS: Insulin Lispro 100 UNIT/ML 3 ML VIAL SUBCUT ×3 (11:50→20:57)
[2020-09-05] MEDS: Metoclopramide HCl 10 MG TABLET PO (11:54)
--- NOTE | 2020-09-05 13:50 | PM.GICN ---
History of Present Illness Data of Consult Service Date: 09/05/20 Requesting physician: Neil Dozier Primary Care Provider: MARYAN Rodriguez HPI Reason for consult: Nausea and vomiting 35 YF with Type 1 DM, depression and PTSD seen at [facility] ED night of 09/03/2020 with nausea and vomiting: HPI narrative: Patient comes emergency room complaining of abdominal pain, vomiting. Patient states that all her symptoms started this morning. Patient states she has had this in the past, has history of gastroparesis due to type 1 diabetes, patient states she shut off her insulin pump because she has not been eating. Patient took at home Zofran and Reglan but did not work. Patient was admitted and started on IV fluids, IV Pepcid, PO metoclopramide and IV ondansetron 4 mg p.r.n. She denies significant improvement in her symptoms. H & H dropped to 10.5 & 32.2 (from 13.4 & 42 on admission) Pt had an elevated GGT and alkaline phosphatase on admission - hepatitis B and C serologies were negative. Patient complains of abdominal pain nausea vomiting for the past 2 days. Patient denies symptoms of heartburn, dysphagia, recent change in bowel habits, constipation, diarrhea, black stools or rectal bleeding. She reports history of similar episode 1 year ago her and was hospitalized at an outside facility. Episodes usually last 2-3 days and subsided after she is treated with IV fluids and antiemetics. In between episodes she denies significant symptoms other than early satiety. She usually takes 2-3 small meals daily This is her 4th episode over the past few years. Patient was diagnosed with diabetes mellitus 14 years ago and is on an insulin pump. She has a history of migraine headaches approx once a month Patient denies major cardiac or pulmonary problems, loud snoring or sleep apnea Denies being on chronic anticoagulation. She had a baby boy 4 months ago. She was on aspirin during her and discontinued after delivery. Family history is positive for migraine headaches in her mom, heart disease and diabetes. A maternal uncle was diagnosed with colon cancer at age 75 years. Her great grand mother had colon cancer in her 70s. IMAGING STUDIES: 09/03/[address] SCAN SHOWED: 1. An etiology for the patient's acute epigastric abdominal pain has not been found. 2. Wall only 2 small pulmonary micronodules, cholecystectomy, IUD in the uterus and right ovarian cyst. This cyst needs no further follow-up. PAST EGD: pt reports having an EGD and Gastric emptying study at [facility] 2 years ago and was started on Reglan once a day. Per patient EGD was normal and gastric emptying study showed gastroparesis - records were requested Records obtained and reviewed 11/2018 Gastric emptying study showed modest delay in gastric emptying with 16% activity at 04:00 hours. 12/2018 EGD showed mild gastritis. Gastric bx showed reactive changes and duodenal biopsies were normal. Review of Systems Constitutional: Constitutional: Reports chills, Reports fever(s), Denies headache(s) and Denies weight loss Eyes: Eyes: Denies eye discharge and Denies irritation ENT: Reports Normal hearing present, Denies dysphagia, Denies dizziness and Denies headache(s) Cardiovascular: Cardiovascular: Denies chest pain, Denies leg edema and Denies dyspnea on exertion Respiratory: Respiratory: Denies cough, Denies dyspnea on exertion and Denies wheezing Gastrointestinal: Gastrointestinal: Reports abdominal pain, Denies change in bowel habits, Denies dysphagia, Denies heartburn, Reports nausea and Reports vomiting Genitourinary: Genitourinary: Denies difficulty voiding and Denies dysuria Musculoskeletal: Musculoskeletal: Denies back pain and Denies arthralgias Integumentary/Breasts: Skin/Breast: Denies pruritus, Denies rash and Denies jaundice Neurologic: Reports Normal hearing present, Denies Abnormal speech present, Denies dizziness, Denies headache(s) and Denies seizure-like activity Psychiatric: Psychiatric: Denies anxiety, Reports depression and Denies panic attacks Endocrine: Endocrine: Denies cold intolerance, Denies flushing and Denies heat intolerance Hematologic/Lymphatic: Hematologic/Lymphatic: Denies easy bleeding and Denies easy bruising Allergic/Immunologic: Allergic/Immunologic: Denies wheezing PMFSH Past Medical History Medical History Anxiety delivery delivered Depression Diabetes type I Gastroparesis Insomnia PTSD (post-traumatic stress disorder) Surgical History Surgical History Hx of cholecystectomy Social History Social History Household Members: Spouse, Family and Children Housing: Apartment Do you presently have visiting nurse or other home services: No Patient Tobacco Use Status: Never used Tobacco Use of substances other than those prescribed or required for medical reasons: No Currently Displaying Signs/Symptoms of Drug Intoxication Withdrawal: No Have you been hit, kicked, punched, or otherwise hurt by someone within the past year? If so, by whom?: No Do you feel safe in your current relationship?: Yes Is there a partner from a previous relationship who is making you feel unsafe now?: No Are you made to feel afraid or neglected: No Advance Directives: No Advance Directives Information Provided: No Do you have thoughts of harming others: None Do you have a plan to hurt others: No Plan Recently lost weight without trying: No How much weight loss: Not applicable Eating poorly because of decreased appetite: No Nutrition screen score: 0 Nutrition Risks: No Nutritional Risk Patient : No : No Poor oral hygiene: No service: No Meds Allergies Allergy/AdvReac Type Severity Reaction Status Date / Time diphenhydramine Allergy Mild ITCHY Verified 09/06/20 12:00 [From BENADRYL] ANXIOUS ciprofloxacin [From CIPRO] Allergy Unknown Anaphylaxis Verified 09/06/20 12:00 SHELLFISH Allergy Severe Anaphylaxis Uncoded 09/06/20 12:00 Shellfish Allergy Severe Anaphylaxis Uncoded 09/06/20 12:00 From CIPRO Allergy Unknown Anaphylaxis Uncoded 09/06/20 12:00 Active Medications: Current Medications Generic Name Dose Route Start Last Admin Trade Name Freq PRN Reason Stop Dose Admin Acetaminophen 650 mg 09/04/20 01:42 Acetaminophen Supp 650 Mg Supp.Rect KS Q6H PRN Pain, Mild (Pain Scale 1-3) Clonidine HCl 0.2 - 0.3 mg 09/05/20 11:37 Clonidine Hcl 0.1 Mg Tablet PO BEDTIME PRN RESTLESSNESS Protocol Dextrose/Sodium Chloride 1,000 mls @ 100 mls/hr 09/04/20 01:45 09/05/20 07:45 D51/2ns IVCONT 100 mls/hr .Q10H EDWIN Administration Promethazine HCl 12.5 mg/ 50.5 mls @ 202 mls/hr 09/05/20 11:21 Sodium Chloride IV Q6H PRN nausea and vomitting Insulin Human Lispro 0 unit 09/05/20 11:30 09/05/20 11:50 Insulin Lispro 100 Unit/Ml 3 Ml Vial SUBCUT 6 unit QIDACHS EDWIN Administration Protocol Lorazepam 0.5 mg 09/04/20 03:01 09/05/20 07:45 Lorazepam 2 Mg/Ml Vial IVPUSH 0.5 mg Q6H PRN Administration nausea/vomiting Metoclopramide HCl 10 mg 09/05/20 11:37 09/05/20 11:54 Metoclopramide Hcl 10 Mg Tablet PO 10 mg QID PRN Administration Abdominal Discomfort Morphine Sulfate 2 mg 09/05/20 11:40 Morphine Sulfate 2 Mg/Ml Cartridge IVPUSH Q6H PRN Nausea and Vomiting Ondansetron HCl 4 mg 09/04/20 17:10 09/05/20 05:49 Ondansetron Hcl 4 Mg/2 Ml Vial IVPUSH 4 mg Q8H PRN Administration Nausea and Vomiting Pantoprazole Sodium 40 mg 09/05/20 12:10 09/05/20 12:57 Pantoprazole Sodium 40 Mg/10 Ml Vial IVPUSH Not Given BID@0630,1630 [facility] Consult 1 each 09/04/20 08:21 Consult Rx Perform Med Rec MISCELLANE ONCE PRN Consult order Quetiapine Fumarate 50 mg 09/05/20 11:37 Quetiapine Fumarate 50 Mg Tablet PO BEDTIME PRN RESTLESSNESS Sodium Chloride 3 ml 09/04/20 08:00 09/05/20 08:10 0.9 % Sodium Chloride Flush 3 Ml Syringe IVFLUSH Not Given QSHIFT [facility] Home Medications Medication Instructions Recorded Confirmed Last Taken Type clonidine HCl 2 - 3 tab PO BEDTIME PRN 09/04/20 09/04/20 09/02/20 History insulin lispro [Humalog U-100 0 - 67 unit SUBCUT DAILY 09/04/20 09/04/20 Unknown History Insulin] insulin pump cartridge [Omnipod 09/04/20 09/04/20 Unknown History Dash 5 Pack Pod] metoclopramide HCl 1 tab PO QID PRN 09/04/20 09/04/20 Unknown History quetiapine 0.5 tab PO BEDTIME PRN 09/04/20 09/04/20 Unknown History Physical Exam Vital Signs: Vital Signs: Last Vital Signs Temp 97.6 F 09/05/20 11:42 Pulse 98 09/05/20 11:42 Resp 18 09/05/20 11:42 BP 172/86 H 09/05/20 11:42 Pulse Ox 100 06/12/21 11:42 Body Mass Index 34.0 Const: General: healthy appearing, awake and in distress (due to nausea and vomiting) Nutritional Appearance: obese Orientation/consciousness: patient oriented x3 Limitations: no limitations HENMT: Head: Yes normal to inspection Ears: hearing grossly normal bilaterally Mouth: Normal oral and palatal mucosa present Eyes: Sclerae: sclerae normal Pupils: Equal, round and reactive pupils present Neck: Neck: Yes normal visual inspection Chest: Chest palpation & inspection: normal inspection of the chest Resp: Effort & Inspection: normal respiratory effort Auscultation: clear to auscultation bilaterally Cardio: Palpation: normal PMI Rate: regular rate Rhythm: regular rhythm Heart sounds: S1 normal heart sound present, S2 normal heart sound present and no murmurs GI: Palpation (GI): Soft to palpation, Tenderness to palpation present (GI) (Mild upper abdominal tenderness) and No hepatosplenomegaly present Auscultation: normal bowel sounds Rectal Exam - Female: deferred Skin: General skin exam: no rashes or lesions noted Neuro: General: patient oriented x3, gait normal and moves all extremities Cranial nerves: Yes Equal, round and reactive pupils present and Yes Normal hearing present Speech: No Abnormal speech present Psych: Appearance: grossly normal Mental Status: mental status grossly normal Results Labs CBC & Chem 7: 09/06/20 06:31 09/06/20 06:31 Assessment and Plan (1) Diabetes mellitus with gastroparesis: Status: Acute (2) Nausea & vomiting: Qualifiers: Vomiting Intractability: unspecified Vomiting type: unspecified Qualified Code(s): R11.2 - Nausea with vomiting, unspecified Status: Acute 35 YF with Type 1 DM, depression and PTSD admitted with 2 day hx of abd pain, nausea and vomiting. Patient has had similar episode in the past usually once a year. Per patient gastric emptying study at [facility] a year ago showed gastroparesis in she was started on metoclopramide months a day. 11/2018 Gastric emptying study showed modest delay in gastric emptying with 16% activity at 04:00 hours. 12/2018 EGD showed mild gastritis. Gastric bx showed reactive changes and duodenal biopsies were normal. Her symptoms are likely a combination of gastroparesis and cyclic vomiting syndrome. Lab studies show anemia (likely nutritional related to recent ) and elevated GGT and AP RECOMMENDATIONS: 1. Change pepcid to IV PPI twice daily 2. Increase ondansetron to 8 mg IV Q 6-8 hourly (max 24 hr dose of 32 mg) 3. Monitor her symptoms over next 24 - 48 hrs. If no improvement I will schedule her for an upper endoscopy on 4. Iron studies, Vitamin B12 and folate levels - added to am labs 5. Once symptoms improve, encourage frequent small feedings with low-fat foods for nutritional rehabilitation Procedures Date of Service Date of Service: 09/05/20
--- NOTE | 2020-09-05 14:25 | PC.NURSE ---
1145- Pt BP has been running high, last BP 172/86, pulse 98. Dr. Dozier made aware. No new orders at this time.
[2020-09-05] MEDS: Morphine Sulfate 2 MG/ML CARTRIDGE IVPUSH ×2 (15:04→21:08)
[2020-09-05] MEDS: 0.9 % Sodium Chloride Flush 3 ML SYRINGE IVFLUSH (15:04)
[2020-09-05 15:22] VITALS: BP 165/82; PULSE 99; RESP 20; TEMP 36.6; O2SAT 98
[2020-09-05 16:17] LABS: Glucose, Whole Blood 259 mg/dL (60-115)
[2020-09-05] MEDS: Pantoprazole Sodium 40 MG/10 ML VIAL IVPUSH (16:36)
[2020-09-05 19:13] VITALS: BP 165/82; PULSE 99; RESP 20; TEMP 36.6; O2SAT 100
[2020-09-05 20:19] LABS: Glucose, Whole Blood 245 mg/dL (60-115)
[2020-09-06] VITALS (7 sets, daily range): BP systolic 132–171; BP diastolic 70–87; PULSE 94–104; RESP 14–18; TEMP 35.8–36.7; O2SAT 98–100
[2020-09-06] MEDS: Dextrose 5 % and 0.45 % NaCl 1,000 ML 100 ML IVCONT ×3 (02:35→23:53)
[2020-09-06] MEDS: Morphine Sulfate 2 MG/ML CARTRIDGE IVPUSH ×3 (04:35→17:59)
[2020-09-06] MEDS: LORazepam 2 MG/ML VIAL 0.5 MG IVPUSH (04:36)
[2020-09-06] MEDS: Pantoprazole Sodium 40 MG/10 ML VIAL IVPUSH ×2 (05:44→17:35)
[2020-09-06 07:25] LABS: Glucose, Whole Blood 288 mg/dL (60-115)
[2020-09-06 07:39] LABS: Iron 100 mcg/dL (30-160); Percent Iron Saturation 23 % (15-50); Total Iron Binding Capacity 443 mcg/dL (228-428); Unsaturated Iron Binding 343 ug/dL
[2020-09-06 08:00] LABS: Ferritin 49 ng/mL (10-122)
[2020-09-06 08:15] LABS: Hematocrit 40.6 % (37-47); Hemoglobin 13.4 g/dl (12.0-16.0); Mean Corpuscular Hemoglobin 26.5 pg (27.0-33.0); Mean Corpuscular Volume 80.4 fL (80-98); Mean Platelet Volume 9.8 fL (9.4-12.3); Platelet Count 365 X10*3/uL (160-400); Red Blood Count 5.05 X10*6/uL (4.20-5.50); Red Cell Distribution Width 14.6 % (11.0-16.0); White Blood Count 12.4 X10*3/uL (4.8-10.8)
[2020-09-06] MEDS: Metoclopramide HCl 10 MG TABLET PO ×3 (08:19→18:51)
[2020-09-06] MEDS: Insulin Lispro 100 UNIT/ML 3 ML VIAL SUBCUT ×4 (08:19→20:34)
[2020-09-06 08:27] LABS: Anion Gap 14 (12-20); Blood Urea Nitrogen 8 mg/dL (9-16); Calcium 9.3 mg/dL (8.4-10.2); Carbon Dioxide 25 mmol/L (22-29); Chloride 99 mmol/L (96-108); Estimated Glomerular Filt Rate > 60; Glucose Random 278 mg/dL (60-115); Potassium 3.7 mmol/L (3.3-5.1); Sodium 134 mmol/L (135-145)
[2020-09-06 11:38] LABS: Glucose, Whole Blood 249 mg/dL (60-115)
--- NOTE | 2020-09-06 11:43 | HO.PM.IMPN ---
Subjective Subjective Date of Service: 09/06/20 Interval History: Seen in follow-up for nausea vomiting that is intractable. Nause and vomitting is better and wants to try clear liquid diet Review of Systems Gen: no fever Resp: no sob, no cough CV: no chest, no MULLER, no leg edema GI: Nausea and vomiting. Neuro: No confusion Physical Exam Vital Signs: Vital Signs: Last Vital Signs Temp 98.0 F 09/06/20 07:20 Pulse 104 H 09/06/20 07:20 Resp 17 09/06/20 07:20 BP 171/81 H 09/06/20 07:20 Pulse Ox 98 09/06/20 07:20 Body Mass Index 34.0 Const: Other: Constitutional Awake and Alert, No apparent distress Neck Supple, No lymphadenopathy Cardiovascular RRR, No M/R/G, S1 S2, No S3 S4, No pedal edema Respiratory Lungs clear, No respiratory distress Gastrointestinal some epigastric tenderness, Non-distended Skin No rash Neurological Alert & oriented x3 Psychological Appropriate affect Objective Data Current Medications Generic Name Dose Route Start Last Admin Trade Name Poolq PRN Reason Stop Dose Admin Acetaminophen 650 mg 09/04/20 01:42 Acetaminophen Supp 650 Mg Supp.Rect NM Q6H PRN Pain, Mild (Pain Scale 1-3) Clonidine HCl 0.2 - 0.3 mg 09/05/20 11:37 Clonidine Hcl 0.1 Mg Tablet PO BEDTIME PRN RESTLESSNESS Protocol Dextrose/Sodium Chloride 1,000 mls @ 100 mls/hr 09/04/20 01:45 09/06/20 02:35 D51/2ns IVCONT 100 mls/hr .Q10H EDWIN Administration Promethazine HCl 12.5 mg/ 50.5 mls @ 202 mls/hr 09/05/20 11:21 09/06/20 03:00 Sodium Chloride IV Infused Q6H PRN Infusion nausea and vomitting Insulin Human Lispro 0 unit 09/05/20 11:30 09/06/20 08:19 Insulin Lispro 100 Unit/Ml 3 Ml Vial SUBCUT 6 unit QIDACHS EDWIN Administration Protocol Lorazepam 0.5 mg 09/04/20 03:01 09/06/20 04:36 Lorazepam 2 Mg/Ml Vial IVPUSH 0.5 mg Q6H PRN Administration nausea/vomiting Metoclopramide HCl 10 mg 09/05/20 11:37 09/06/20 08:19 Metoclopramide Hcl 10 Mg Tablet PO 10 mg QID PRN Administration Abdominal Discomfort Morphine Sulfate 2 mg 09/05/20 11:40 09/06/20 04:35 Morphine Sulfate 2 Mg/Ml Cartridge IVPUSH 2 mg Q6H PRN Administration Nausea and Vomiting Ondansetron HCl 4 mg 09/04/20 17:10 09/05/20 15:03 Ondansetron Hcl 4 Mg/2 Ml Vial IVPUSH 4 mg Q8H PRN Administration Nausea and Vomiting Pantoprazole Sodium 40 mg 09/05/20 12:10 09/06/20 05:44 Pantoprazole Sodium 40 Mg/10 Ml Vial IVPUSH 40 mg BID@0630,1630 [facility] Administration Pharmacy Consult 1 each 09/04/20 08:21 Consult Rx Perform Med Rec MISCELLANE ONCE PRN Consult order Quetiapine Fumarate 50 mg 09/05/20 11:37 Quetiapine Fumarate 50 Mg Tablet PO BEDTIME PRN RESTLESSNESS Sodium Chloride 3 ml 09/04/20 08:00 09/06/20 08:19 0.9 % Sodium Chloride Flush 3 Ml Syringe IVFLUSH Not Given QSHIFT [facility] Labs CBC & Chem 7: 09/06/20 06:31 09/06/20 06:31 Assessment and Plan (1) Nausea & vomiting: Status: Acute (2) Diabetes mellitus with gastroparesis: Status: Acute Assessment and Plan: 35 year female with insulin dependent diabetes here with intractable nausea and vomitting with some epigastric pain, no CT finding to explain this she likely has diabetes gastroparesis plan: Symptomatic treatment with antiemetic, pepcid, IVF, pain meds, GI will performed EGD tomorrow Insulin by SSI while pump is off, if sugars are very high once eating, I will addd long acting insulin.
[2020-09-06] MEDS: ondansetron HCL 4 MG/2 ML VIAL IVPUSH ×2 (11:55→20:35)
[2020-09-06 16:12] LABS: Glucose, Whole Blood 235 mg/dL (60-115)
[2020-09-06 20:29] LABS: Glucose, Whole Blood 265 mg/dL (60-115)
[2020-09-07] VITALS (7 sets, daily range): BP systolic 121–172; BP diastolic 59–96; PULSE 94–111; RESP 14–18; TEMP 36.3–36.7; O2SAT 98–100
[2020-09-07] MEDS: Morphine Sulfate 2 MG/ML CARTRIDGE IVPUSH ×3 (00:25→21:36)
[2020-09-07 04:38] LABS: Folate 14.8 ng/mL (> or = 4.0); Vitamin B12 322 pg/mL (200-900)
[2020-09-07] MEDS: Pantoprazole Sodium 40 MG/10 ML VIAL IVPUSH ×2 (06:34→20:20)
[2020-09-07 07:25] LABS: Glucose, Whole Blood 275 mg/dL (60-115)
[2020-09-07] MEDS: Insulin Lispro 100 UNIT/ML 3 ML VIAL SUBCUT ×4 (08:29→21:37)
[2020-09-07] MEDS: 0.9 % Sodium Chloride Flush 3 ML SYRINGE IVFLUSH (08:29)
[2020-09-07] MEDS: ondansetron HCL 4 MG/2 ML VIAL IVPUSH ×2 (08:29→21:41)
[2020-09-07] MEDS: Dextrose 5 % and 0.45 % NaCl 1,000 ML 100 ML IVCONT (11:24)
[2020-09-07 11:52] LABS: Glucose, Whole Blood 259 mg/dL (60-115)
[2020-09-07 12:00] LABS: Calcium 8.9 mg/dL (8.4-10.2)
[2020-09-07 12:04] LABS: Anion Gap 11 (12-20); Blood Urea Nitrogen 8 mg/dL (9-16); Carbon Dioxide 25 mmol/L (22-29); Chloride 104 mmol/L (96-108); Creatinine Clr Calc Pharmacy 112.2; Estimated Glomerular Filt Rate > 60; Glucose Random 266 mg/dL (60-115); Potassium 3.2 mmol/L (3.3-5.1); Sodium 137 mmol/L (135-145)
[2020-09-07 16:41] LABS: Glucose, Whole Blood 216 mg/dL (60-115)
[2020-09-07] MEDS: Metoclopramide HCl 10 MG TABLET PO (16:58)
--- NOTE | 2020-09-07 18:20 | P.PNIM_ITS ---
Subjective Subjective Date of Service: 09/07/20 Interval History: She is feeling a little noxious, tolerated some liquid diet Review of Systems Gen: no fever Resp: no sob, no cough CV: no chest, no MULLER, no leg edema GI: + n/v, no abd pain Neuro: No confusion Physical Exam Vital Signs: Vital Signs: Last Vital Signs Temp 98.1 F 09/07/20 15:25 Pulse 94 09/07/20 15:25 Resp 16 09/07/20 15:25 BP 149/78 H 09/07/20 15:25 Pulse Ox 100 09/07/20 15:25 Body Mass Index 34.0 Const: Other: General: AO X 3, no acute distress Resp: CTA bilateral CVS: S1,S2,RRR GI: +BS, NT, no distention Skin: No rash Neuro: motor grossly intact Psych: appropriate affect Objective Data Current Medications Generic Name Dose Route Start Last Admin Trade Name Freq PRN Reason Stop Dose Admin Acetaminophen 650 mg 09/04/20 01:42 Acetaminophen Supp 650 Mg Supp.Rect [place] Q6H PRN Pain, Mild (Pain Scale 1-3) Clonidine HCl 0.2 - 0.3 mg 09/05/20 11:37 Clonidine Hcl 0.1 Mg Tablet PO BEDTIME PRN RESTLESSNESS Protocol Promethazine HCl 12.5 mg/ 50.5 mls @ 202 mls/hr 09/05/20 11:21 09/07/20 12:59 Sodium Chloride IV Infused Q6H PRN Infusion nausea and vomitting Dextrose/Sodium Chloride 1,000 mls @ 100 mls/hr 09/07/20 11:00 09/07/20 11:24 D51/2ns IVCONT 100 mls/hr .Q10H EDWIN Administration Insulin Human Lispro 0 unit 09/05/20 11:30 09/07/20 16:48 Insulin Lispro 100 Unit/Ml 3 Ml Vial SUBCUT 6 unit QIDACHS EDWIN Administration Protocol Lorazepam 0.5 mg 09/04/20 03:01 09/06/20 04:36 Lorazepam 2 Mg/Ml Vial IVPUSH 0.5 mg Q6H PRN Administration nausea/vomiting Metoclopramide HCl 10 mg 09/05/20 11:37 09/07/20 16:58 Metoclopramide Hcl 10 Mg Tablet PO 10 mg QID PRN Administration Abdominal Discomfort Morphine Sulfate 2 mg 09/05/20 11:40 09/07/20 12:33 Morphine Sulfate 2 Mg/Ml Cartridge IVPUSH 2 mg Q6H PRN Administration Nausea and Vomiting Ondansetron HCl 4 mg 09/04/20 17:10 09/07/20 08:29 Ondansetron Hcl 4 Mg/2 Ml Vial IVPUSH 4 mg Q8H PRN Administration Nausea and Vomiting Pantoprazole Sodium 40 mg 09/05/20 12:10 09/07/20 06:34 Pantoprazole Sodium 40 Mg/10 Ml Vial IVPUSH 40 mg BID@7850,5630 [facility] Administration Pharmacy Consult 1 each 09/04/20 08:21 Consult Rx Perform Med Rec MISCELLANE ONCE PRN Consult order Quetiapine Fumarate 50 mg 09/05/20 11:37 Quetiapine Fumarate 50 Mg Tablet PO BEDTIME PRN RESTLESSNESS Sodium Chloride 3 ml 09/04/20 08:00 09/07/20 08:29 0.9 % Sodium Chloride Flush 3 Ml Syringe IVFLUSH 3 ml QSHIFT [facility] Administration Labs CBC & Chem 7: 09/06/20 06:31 09/07/20 10:57 Labs: Laboratory Results - last 24 hr 09/06/20 09/06/20 09/07/20 06:31 20:26 07:19 Sodium Potassium Chloride Carbon Dioxide Anion Gap BUN Creatinine Estim Creat Clear Calc Estimated GFR POC Glucose 265 H 275 H Random Glucose Calcium Vitamin B12 322 Folate 14.8 09/07/20 09/07/20 09/07/20 10:57 11:35 16:37 Sodium 137 Potassium 3.2 L Chloride 104 Carbon Dioxide 25 Anion Gap 11 L BUN 8 L Creatinine 0.65 Estim Creat Clear Calc 112.2 Estimated GFR > 60 POC Glucose 259 H 216 H Random Glucose 266 H Calcium 8.9 Vitamin B12 Folate Assessment and Plan (1) Nausea & vomiting: Status: Acute (2) Diabetes mellitus with gastroparesis: Status: Acute Assessment and Plan: 35 year female with insulin dependent diabetes here with intractable nausea and vomitting with some epigastric pain, no CT finding to explain this she likely has diabetes gastroparesis plan: Symptomatic treatment with antiemetic, pepcid, IVF, pain meds, GI will performed EGD tomorrow Insulin by SSI while pump is off, if sugars are very high once eating, I will addd long acting insulin. Low potassium of 3.2, K in IVF
[2020-09-07] MEDS: KCl 20 mEq in 0.45% Sod 20 MEQ/1,000 ML IV.SOLN 100 MEQ IVCONT (20:20)
[2020-09-07 20:35] LABS: Glucose, Whole Blood 205 mg/dL (60-115)
[2020-09-08] VITALS: BP 122/74; PULSE 114; RESP 16; TEMP 36.9; O2SAT 99
[2020-09-08 04:00] VITALS: BP 145/92; PULSE 97; RESP 16; TEMP 37.2; O2SAT 97
[2020-09-08] MEDS: Pantoprazole Sodium 40 MG/10 ML VIAL IVPUSH (06:00)
[2020-09-08] MEDS: KCl 20 mEq in 0.45% Sod 20 MEQ/1,000 ML IV.SOLN 100 MEQ IVCONT (06:02)
[2020-09-08 07:21] VITALS: BP 118/65; PULSE 92; RESP 17; TEMP 37.4; O2SAT 98
[2020-09-08] MEDS: Insulin Lispro 100 UNIT/ML 3 ML VIAL SUBCUT ×2 (07:42→11:41)
[2020-09-08] MEDS: 0.9 % Sodium Chloride Flush 3 ML SYRINGE IVFLUSH (07:43)
[2020-09-08 07:44] LABS: Glucose, Whole Blood 179 mg/dL (60-115)
--- NOTE | 2020-09-08 08:24 | MHC.CM.PN ---
PATIENT IS DISCHARGED HOME WITH NO NEED FOR SERVICES. SHE HAS HER OWN TRANSPORT HOME. RN AWARE OF PLAN.
[2020-09-08 08:54] LABS: Anion Gap 12 (12-20); Blood Urea Nitrogen 8 mg/dL (9-16); Calcium 8.2 mg/dL (8.4-10.2); Carbon Dioxide 20 mmol/L (22-29); Chloride 108 mmol/L (96-108); Creatinine Clr Calc Pharmacy 121.6; Estimated Glomerular Filt Rate > 60; Glucose Random 196 mg/dL (60-115); Potassium 3.4 mmol/L (3.3-5.1); Sodium 137 mmol/L (135-145)
--- NOTE | 2020-09-08 11:09 | PM.DS ---
DS: Providers Provider Date of Service: 09/08/20 Date of admission: 09/04/20 01:42 Primary care physician: MARYAN Rodriguez Consults: 09/05/20 11:23 Consult to Gastroenterology Routine Consulting Provider: Nasima Dan Reason for consultation: Abdominal pain with intractable nausea and vomitting DS: Diagnosis Discharge Diagnosis (1) Nausea & vomiting: Status: Acute (2) Diabetes mellitus with gastroparesis: Status: Acute DS: Medications Discharge Medications Home Medications: Home Medications Medication Instructions Recorded Confirmed Omnipod Dash 5 Pack Pod 09/04/20 09/04/20 clonidine HCl 2 - 3 tab PO BEDTIME PRN 09/04/20 09/04/20 insulin lispro [Humalog U-100 0 - 67 unit SUBCUT DAILY 09/04/20 09/04/20 Insulin] metoclopramide HCl 1 tab PO QID PRN 09/04/20 09/04/20 quetiapine 0.5 tab PO BEDTIME PRN 09/04/20 09/04/20 Previous Rx's Medication Instructions Recorded ondansetron 4 mg PO Q8H PRN 10 Days tab 09/07/20 DS: Summary Hospital Course Hospital Course: Patient was admitted was admitted due to nausea and vomitting in setting of longstanding diabetes and gastroparesis. She was managed with IVF and antiemtics and was seen by GI but no intervention done and over the course of hospitazlation, her diet was advanced and now is tolerating regular diet. She will follow up with Dr. Dan of GI and if symptoms persists, she might benefit from EGD. Her dibetes was managed with insulin in the hospital as her pump ceased to function, she has assured me that she has a replacement at home. Her potassium was slightly low but has corrected with IV replacement through IVF Time Spent with Patient Time attestation: Total time spent providing and/or coordinating discharge services: Discharge coordination time: Greater than 30 minutes Quality: Stroke Does the patient have a stroke diagnosis?: No Physical Exam Vital Signs: Vital Signs: Last Vital Signs Temp 99.3 F 09/08/20 07:21 Pulse 92 09/08/20 07:21 Resp 17 09/08/20 07:21 BP 118/65 09/08/20 07:21 Pulse Ox 98 09/08/20 07:21 Body Mass Index 34.0 General: AO X 3, no acute distress Resp: CTA bilateral CVS: S1,S2,RRR GI: +BS, NT, no distention Skin: No rash Neuro: motor grossly intact Psych: appropriate affect DS: Data Data Completed and Pending Labs on day of discharge: Laboratory Results - last 24 hr 09/07/20 09/07/20 09/07/20 10:57 11:35 16:37 Sodium 137 Potassium 3.2 L Chloride 104 Carbon Dioxide 25 Anion Gap 11 L BUN 8 L Creatinine 0.65 Estim Creat Clear Calc 112.2 Estimated GFR > 60 POC Glucose 259 H 216 H Random Glucose 266 H Calcium 8.9 09/07/20 09/08/20 09/08/20 20:31 07:11 07:20 Sodium 137 Potassium 3.4 Chloride 108 Carbon Dioxide 20 L Anion Gap 12 BUN 8 L Creatinine 0.60 Estim Creat Clear Calc 121.6 Estimated GFR > 60 POC Glucose 205 H 179 H Random Glucose 196 H Calcium 8.2 L D Discharge Plan Discharge Anticipated Discharge Date/Time: 09/08/20 11:07 Patient Disposition: Home, Self-Care Discharge Diagnosis: Diabetes gastroparesis Referrals: Ariane West PA [Primary Care Provider] - 1 Week Discharge Medications: New ondansetron 4 mg tablet,disintegrating 4 mg PO Q8H PRN (Reason: nausea and vomiting) 10 Days RF: 0 Continued clonidine HCl 0.1 mg tablet 2 - 3 tab PO BEDTIME PRN (Reason: RESTLESSNESS) RF: 0 quetiapine 100 mg tablet 0.5 tab PO BEDTIME PRN (Reason: RESTLESSNESS) RF: 0 insulin lispro [Humalog U-100 Insulin] 100 unit/mL solution 0 - 67 unit subcut DAILY RF: 0 metoclopramide HCl 10 mg tablet 1 tab PO QID PRN (Reason: Abdominal Discomfort) RF: 0 (DME) Omnipod Dash 5 Pack Pod Cartridge subcut RF: 0 Discharge Orders: Discharge Order (Routine); Ordered 09/07/20 Ordered By: Neil Dozier Diet: advance to usual diet and diabetic diet Activity on Discharge: As tolerated Stand Alone Forms: Patient Portal Discharge page Care Plan Goals: prevent rehospitalization Health Concerns: diabetes with gastroparesis, nause and vomitting Plan of Treatment: Take your medication as recommended and follow up with your Dcotor in a week Assessment: See above
[2020-09-08 11:20] LABS: Glucose, Whole Blood 239 mg/dL (60-115)
[2020-09-08] MEDS: Metoclopramide HCl 10 MG TABLET PO (11:40)
[2020-09-08 12:00] VITALS: BP 114/73; PULSE 104; RESP 18; TEMP 36.8; O2SAT 98
== END 2020-09-08 15:44 | disposition home or self-care (01) | DRG 74 ==
LOC: HO.ED 09-04 01:45 → HO.EDOVER 09-04 02:18 → HO.S3 09-04 04:29
PROVIDERS: Internal Medicine Gastroenterology; Admitting Provider Hospitalist; Emergency Provider Emergency Medicine; PCP Physician Assistant; Visit Provider Internal Medicine
DX: E10.43 Type 1 diabetes mellitus with diabetic autonomic (poly)neuropathy (principal); E10.65 Type 1 diabetes mellitus with hyperglycemia; F43.10 Post-traumatic stress disorder, unspecified; Z96.41 Presence of insulin pump (external) (internal); K31.84 Gastroparesis; Z20.822 Contact with and (suspected) exposure to COVID-19; Z79.4 Long term (current) use of insulin; Z79.899 Other long term (current) drug therapy
CPT/HCPCS: 36415; 71275; 74177; 80048; 80053; 80076; 81001; 81003; 81025; 82009; 82607; 82728; 82746; 82947; 82977; 83540; 83690; 83880; 84484; 85025; 85027; 85379; 86704; 86706; 86709; 86803; 87340; 87635; 93005; 93306; 99285; J1885; J2060; J2270; J2405; J2550; J2765; Q9967

== ENCOUNTER 2021-08-13 10:13 | Inpatient (IN) | payer OTHER, SELFPAY ==
[2021-08-13 10:30] VITALS: BP 119/80; PULSE 72; RESP 16; TEMP 37; O2SAT 99; BMI 33.2
[2021-08-13 14:40] VITALS: BP 174/88; PULSE 79; RESP 17; TEMP 37.2; O2SAT 100
[2021-08-13] MEDS: ondansetron HCL 4 MG/2 ML VIAL IVPUSH (15:27)
[2021-08-13] MEDS: 0.9 % Sodium Chloride 1,000 ML 999 ML IV (15:28)
[2021-08-13 15:34] LABS: Basophils Percent Auto 0.1 % (0-2); Hematocrit 41.3 % (37.0-47.0); Hemoglobin 14.2 g/dl (12.0-16.0); Imm Gran Abs Auto 0.09 X10*3/uL (0.00-0.03); Imm Gran Pct Auto 0.5 % (0.0-0.4); Lymphocytes Absolute Auto 0.4 X10*3/uL (1.2-4.9); Lymphocytes Percent Auto 2.4 % (20-40); MANUAL DIFF FLAG SCAN; Mean Corpuscular HGB Conc 34.4 g/dl (31.0-35.0); Mean Corpuscular Hemoglobin 30.2 pg (27.0-33.0); Mean Corpuscular Volume 87.9 fL (80.0-98.0); Mean Platelet Volume 9.8 fL (9.4-12.3); Monocytes Absolute Auto 0.3 X10*3/uL (0.1-1.2); Monocytes Percent Auto 1.4 % (2-11); Neutrophils Absolute Auto 17.2 x10*3/uL (2.0-8.3); Neutrophils Percent Auto 95.6 % (45-73); Platelet Count 337 X10*3/uL (160-400); Red Cell Distribution Width 12.8 % (11.0-16.0); SCAN SMEAR FLAG 1
[2021-08-13 15:56] LABS: Alanine Aminotransferase 49 U/L (0-31); Albumin Level 4.6 g/dL (3.5-5.0); Alkaline Phosphatase 172 U/L (39-117); Anion Gap 19 (12-20); Aspartate Amino Transferase 30 U/L (5-31); Bilirubin Direct 0.5 mg/dL (0.0-0.5); Bilirubin Total 1.2 mg/dL (0.0-1.0); Blood Urea Nitrogen 6 mg/dL (9-16); Calcium 9.6 mg/dL (8.4-10.2); Carbon Dioxide 20 mmol/L (22-29); Chloride 102 mmol/L (96-108); Creatinine Clr Calc Pharmacy 93.9; Estimated Glomerular Filt Rate > 60; Glucose Random 336 mg/dL (60-115); Lipase < 4 U/L (8-78); Potassium 4.1 mmol/L (3.3-5.1); SLIDE REVIEW VERIFIED; Sodium 137 mmol/L (135-145); Total Protein 8.4 g/dL (6.5-8.0)
[2021-08-13 16:18] VITALS: BP 179/87; PULSE 78; RESP 18; TEMP 37.4; O2SAT 99
[2021-08-13 16:26] LABS: Appearance Urine CLEAR; Color Urine YELLOW; Glucose Urine UA >=1000 MG/DL (NEG); Leukocyte Esterase Urine NEG (NEG); Nitrite Urine NEG (NEG); Specific Gravity - Urine 1.025 (1.005-1.025); UACC Culture Trigger NO; Urine Blood TRACE (NEG); Urine Ketones >=80 MG/DL (NEG); Urine Protein 3+ MG/DL (NEG-TRACE)
[2021-08-13 16:28] LABS: UPreg QC Valid YES; Urine Pregnancy NEGATIVE (NEGATIVE)
[2021-08-13 16:34] LABS: Bacteria Urine TRACE /LPF; RBC Urine 0-2 /HPF (0); Squamous Epithelial Cell Urine TRACE /LPF; WBC Urine 0 /HPF (0-4)
--- NOTE | 2021-08-13 16:56 | ED.NAVMDI ---
HPI - Nausea/Vomiting/Diarrhea General Chief complaint: Nausea/Vomiting/Diarrhea Stated complaint: Vomiting Time Seen by Provider: 08/13/21 14:40 Source: patient Mode of arrival: ambulatory Limitations: no limitations History of Present Illness HPI Narrative: 36-year-old female who presents emergency department for evaluation of ?nonstop vomiting ?since 04:00 hours. Patient states that she has vomited multiple times and has lost track of the number of times that she has vomited. She states she is feeling weak, lightheaded and dizzy. She also complains of mid epigastric pain which she describes as a constant, dull ache. The patient states that she has had similar episodes in the past and does have a history of gastroparesis. She states she gets flare-up of gastroparesis the once or twice a year. She states that she has had chills but denied fever. She has had rhinorrhea. She has had occasional cough which is productive of green phlegm. She denied diarrhea. She states that in the past she has received multiple antiemetics including Reglan, Phenergan and Zofran. The patient states that she does vape marijuana products mainly at night to help her sleep. Related Data Home Medications Medication Instructions Recorded Confirmed clonidine HCl 0.1 mg tablet 2 - 3 tab PO BEDTIME PRN 09/04/20 09/04/20 insulin lispro 100 unit/mL 0 - 67 unit SUBCUT DAILY 09/04/20 09/04/20 subcutaneous solution (Humalog U-100 Insulin) insulin pump cartridge (Omnipod 09/04/20 09/04/20 Dash Insulin Pod) metoclopramide HCl 10 mg tablet 1 tab PO QID PRN 09/04/20 09/04/20 quetiapine 100 mg tablet 0.5 tab PO BEDTIME PRN 09/04/20 09/04/20 Previous Rx's Medication Instructions Recorded ondansetron 4 mg disintegrating 4 mg PO Q8H PRN 10 Days tab 09/07/20 tablet Allergies Allergy/AdvReac Type Severity Reaction Status Date / Time diphenhydramine Allergy Mild ITCHY Verified 08/13/21 10:34 [From BENADRYL] ANXIOUS ciprofloxacin [From CIPRO] Allergy Unknown Anaphylaxis Verified 08/13/21 10:34 SHELLFISH Allergy Severe Anaphylaxis Uncoded 08/13/21 10:34 Shellfish Allergy Severe Anaphylaxis Uncoded 08/13/21 10:34 From CIPRO Allergy Unknown Anaphylaxis Uncoded 08/13/21 10:34 Review of Systems Review of Systems: Yes all other systems are reviewed and are negative [facility] Past Medical History [facility] Narrative: Social history: The patient denies tobacco and alcohol use. She does vape marijuana products and night. Medical History Anxiety delivery delivered Depression Diabetes type I Gastroparesis Insomnia PTSD (post-traumatic stress disorder) Surgical History Hx of cholecystectomy Social History Social History Household Members: Spouse, Family and Children Housing: Apartment Do you presently have visiting nurse or other home services: No Patient Tobacco Use Status: Never used Tobacco Advance Directives: No Advance Directives Information Provided: No service: No Physical Exam Vital Signs: Vital Signs: Last Vital Signs Temp 99.3 F 08/13/21 16:18 Pulse 78 08/13/21 16:18 Resp 18 08/13/21 16:18 BP 179/87 H 08/13/21 16:18 Pulse Ox 99 08/13/21 16:18 BMI result Body Mass Index 33.2 Const: Other: Awake, alert, female patient, very pleasant cooperative, she was dry heaving during my interview Orientation/consciousness: oriented to person and oriented to place HEENT: Head: Yes normal to inspection, Yes normocephalic and Yes atraumatic Ears: external ears normal General nose exam: Normal external nose present Face and sinus: Yes normal facial exam Mouth: Normal oral and palatal mucosa present Throat: Yes posterior oropharynx normal Eyes: General: appearance normal, both eyes and all related structures Pupils: Equal, round and reactive pupils present Neck: Neck: Yes normal visual inspection, Yes no lymphadenopathy, Yes trachea midline and Yes supple Chest: Chest palpation & inspection: normal inspection of the chest and normal palpation of entire chest wall Resp: Effort & Inspection: normal respiratory effort and able to speak in complete sentences Auscultation: clear to auscultation bilaterally Cardio: Rate: regular rate Rhythm: regular rhythm Heart sounds: S1 normal heart sound present, S2 normal heart sound present and no murmurs GI: Inspection: Yes normal to inspection Palpation (GI): Soft to palpation, Tenderness to palpation present (GI) in the epigastrum (Moderate) and no guarding Auscultation: normal bowel sounds : General: Yes no CVA tenderness Back/Spine/Pelvis: Back: no CVA tenderness Skin: General skin exam: no rashes or lesions noted Neuro: General: oriented to person and oriented to place Cranial nerves: Yes CN's II-XII intact bilaterally and Yes Equal, round and reactive pupils present Cognition (Neuro): normal cognition Motor exam (neuro): 5/5 motor strength present throughout Extrem: General: Yes normal to inspection Psych: Appearance: grossly normal Speech and movement: Normal speech and movement present Affect: normal affect Attitude: cooperative Thought process: Normal thought process present Thought content: Normal thought content present Course Course Course Narrative: 36-year-old female with a history of diabetes mellitus and gastroparesis who presents emergency department for evaluation of intractable vomiting since 04:00 hours. The patient has also had chills, occasional cough productive of green phlegm and persistent nausea. The patient does vape marijuana products at night to help her sleep. Vital signs were unremarkable. Exam did reveal that she was actively dry heaving and she did have epigastric tenderness. Laboratory evaluation was ordered. She also ordered to get Zofran 4 mg IV and normal saline IV x1 L. 1701: Laboratory evaluation: WBC was elevated 18,000. Glucose was elevated 336. ALT was elevated 49, alk-phos was elevated 172, bilirubin was elevated 1.2. Urinalysis was negative except for glucose. Urine test was negative. Patient got minimal relief of her nausea and vomiting with Zofran. She was given Phenergan 12.5 mg again with only minimal relief of her symptoms. The patient states that she has benefitted from a GI cocktail in the past. Was ordered to get Maalox 30 mL orally and viscous lidocaine 10 cc orally. I also ordered droperidol 1.25 mg IV. At the end of my shift, the patient's care was turned over to my colleague, Dr. Erika Shea. MDM - Nausea/Vomiting/Diarrhea Lab Data Result diagrams: 08/13/21 15:29 08/13/21 15:29 Labs: Lab Results 08/13/21 08/13/21 08/13/21 Range/Units 15:29 15:29 16:16 WBC 18.0 H (4.8-10.8) X10*3/uL RBC 4.70 (4.20-5.50) X10*6/uL Hgb 14.2 (12.0-16.0) g/dl Hct 41.3 (37.0-47.0) % MCV 87.9 (80.0-98.0) fL MCH 30.2 (27.0-33.0) pg MCHC 34.4 (31.0-35.0) g/dl RDW 12.8 (11.0-16.0) % Plt Count 337 (160-400) X10*3/uL MPV 9.8 (9.4-12.3) fL Immature Gran % (Auto) 0.5 H (0.0-0.4) % Neut % (Auto) 95.6 H (45-73) % Lymph % (Auto) 2.4 L (20-40) % [place] % (Auto) 1.4 L (2-11) % Eos % (Auto) 0.0 (0-4) % Baso % (Auto) 0.1 (0-2) % Lymph # (Auto) 0.4 L (1.2-4.9) X10*3/uL [place] # (Auto) 0.3 (0.1-1.2) X10*3/uL Eos # (Auto) 0.0 (0.0-0.4) X10*3/uL Baso # (Auto) 0.0 (0.0-0.2) X10*3/uL Abs Immat Gran (auto) 0.09 H (0.00-0.03) X10*3/uL Absolute Neuts (auto) 17.2 H (2.0-8.3) x10*3/uL Absolute Nucleated RBC 0.000 (0.0-0.012) X10*3/uL Nucleated RBC % (auto) 0.0 (0.0-0.2) /100WBC Smear Tech's Comments VERIFIED Sodium 137 (135-145) mmol/L Potassium 4.1 D (3.3-5.1) mmol/L Chloride 102 (96-108) mmol/L Carbon Dioxide 20 L (22-29) mmol/L Anion Gap 19 (12-20) BUN 6 L (9-16) mg/dL Creatinine 0.76 (0.5-1.4) mg/dL Estim Creat Clear Calc 93.9 Estimated GFR > 60 Random Glucose 336 H (60-115) mg/dL Calcium 9.6 D (8.4-10.2) mg/dL Total Bilirubin 1.2 H (0.0-1.0) mg/dL Direct Bilirubin 0.5 (0.0-0.5) mg/dL AST 30 D (5-31) U/L ALT 49 H (0-31) U/L Alkaline Phosphatase 172 H (39-117) U/L Total Protein 8.4 H (6.5-8.0) g/dL Albumin 4.6 (3.5-5.0) g/dL Lipase < 4 L (8-78) U/L Urine Color YELLOW Urine Appearance CLEAR Urine pH 6.0 (5.0-8.0) Ur Specific [place] 1.025 (1.005-1.025) Urine Protein 3+ H (NEG-TRACE) MG/DL Urine Glucose (UA) >=1000 H (NEG) MG/DL Urine Ketones >=80 (NEG) MG/DL Urine Blood TRACE (NEG) Urine Nitrite NEG (NEG) Ur Leukocyte Esterase NEG (NEG) Urine RBC 0-2 (0) /HPF Urine WBC 0 (0-4) /HPF Ur Squamous Epith Cells TRACE /LPF Urine Bacteria TRACE /LPF Urine Test (NEGATIVE) 08/13/21 Range/Units 16:16 WBC (4.8-10.8) X10*3/uL RBC (4.20-5.50) X10*6/uL Hgb (12.0-16.0) g/dl Hct (37.0-47.0) % MCV (80.0-98.0) fL MCH (27.0-33.0) pg MCHC (31.0-35.0) g/dl RDW (11.0-16.0) % Plt Count (160-400) X10*3/uL MPV (9.4-12.3) fL Immature Gran % (Auto) (0.0-0.4) % Neut % (Auto) (45-73) % Lymph % (Auto) (20-40) % [place] % (Auto) (2-11) % Eos % (Auto) (0-4) % Baso % (Auto) (0-2) % Lymph # (Auto) (1.2-4.9) X10*3/uL [place] # (Auto) (0.1-1.2) X10*3/uL Eos # (Auto) (0.0-0.4) X10*3/uL Baso # (Auto) (0.0-0.2) X10*3/uL Abs Immat Gran (auto) (0.00-0.03) X10*3/uL Absolute Neuts (auto) (2.0-8.3) x10*3/uL Absolute Nucleated RBC (0.0-0.012) X10*3/uL Nucleated RBC % (auto) (0.0-0.2) /100WBC Smear Tech's Comments Sodium (135-145) mmol/L Potassium (3.3-5.1) mmol/L Chloride (96-108) mmol/L Carbon Dioxide (22-29) mmol/L Anion Gap (12-20) BUN (9-16) mg/dL Creatinine (0.5-1.4) mg/dL Estim Creat Clear Calc Estimated GFR Random Glucose (60-115) mg/dL Calcium (8.4-10.2) mg/dL Total Bilirubin (0.0-1.0) mg/dL Direct Bilirubin (0.0-0.5) mg/dL AST (5-31) U/L ALT (0-31) U/L Alkaline Phosphatase (39-117) U/L Total Protein (6.5-8.0) g/dL Albumin (3.5-5.0) g/dL Lipase (8-78) U/L Urine Color Urine Appearance Urine pH (5.0-8.0) Ur Specific [place] (1.005-1.025) Urine Protein (NEG-TRACE) MG/DL Urine Glucose (UA) (NEG) MG/DL Urine Ketones (NEG) MG/DL Urine Blood (NEG) Urine Nitrite (NEG) Ur Leukocyte Esterase (NEG) Urine RBC (0) /HPF Urine WBC (0-4) /HPF Ur Squamous Epith Cells /LPF Urine Bacteria /LPF Urine Test NEGATIVE (NEGATIVE) Discharge Plan Discharge Clinical Impression: Diabetes mellitus with gastroparesis, Vomiting, Epigastric abdominal pain Patient Disposition: Still a Patient Prescriptions: No Action clonidine HCl 0.1 mg tablet 2 - 3 tab PO BEDTIME PRN (Reason: RESTLESSNESS) 0RF quetiapine 100 mg tablet 0.5 tab PO BEDTIME PRN (Reason: RESTLESSNESS) 0RF insulin lispro [Humalog U-100 Insulin] 100 unit/mL solution 0 - 67 unit subcut DAILY 0RF metoclopramide HCl 10 mg tablet 1 tab PO QID PRN (Reason: Abdominal Discomfort) 0RF (DME) Omnipod Dash Pods (Gen 4) Cartridge subcut 0RF ondansetron 4 mg tablet,disintegrating 4 mg PO Q8H PRN (Reason: nausea and vomiting) 10 Days 0RF
[2021-08-13] MEDS: Lidocaine HCl Viscous 2 % 15 ML SOLUTION 10 ML PO (18:17)
[2021-08-13] MEDS: Magnesium Hydrox/Alum Hydrox 30 ML ORAL.SUSP PO (18:18)
--- NOTE | 2021-08-13 18:41 | PC.NURSE ---
patient continues to vomit at this time, reports feelign the same with no improvement. much smaller amount of vomit, mostly dry heaving. provider made aware
[2021-08-13 18:42] VITALS: BP 165/90; PULSE 77; RESP 18; O2SAT 98
--- NOTE | 2021-08-13 19:13 | PC.NURSE ---
patient has constant glucometer on at this time, glucose reading of 284. patient reports that she can dose herself with insulin 4.6 on sliding scale. made aware, will hold on IV insulin administration
[2021-08-13 19:28] VITALS: BP 174/91; PULSE 106; RESP 18; TEMP 37.6; O2SAT 98
--- NOTE | 2021-08-13 19:42 | PHA.MEDREC ---
Pharmacy Consult ? Medication Reconciliation Pharmacy has completed the medication reconciliation. PATEINT TAKES ALL 5 TABS AT ONCE FOR CLONIDINE. SHE IS NOT SURE HOW MUCH INSULIN SHE USES THROUGH THE PUMP. LAST TIME BACTRIM WAS TAKEN WAS ROUGHLY 10 DAYS AGO
[2021-08-13 19:50] LABS: Amphetamine Screen Urine Not Detected (Not Detect); Barbiturates, Urine Not Detected (Not Detect); Benzodiazepines Screen Urine Not Detected (Not Detect); Cannabinoid Screen Urine POSITIVE (Not Detect); Cocaine Screen Urine Not Detected (Not Detect); Fentanyl, urine Not Detected (Not Detect); Opiate Screen Urine Not Detected (Not Detect); Phencyclidine Screen Urine Not Detected (Not Detect)
--- NOTE | 2021-08-13 20:17 | PM.IMHP ---
History of Present Illness Date of Service: 08/13/21 Chief Complaint: nausea/vomiting 36-year-old female with a past medical history of anxiety, depression, diabetes, diabetic gastro paresis, insomnia, PTSD; history of cannabis use; presented to the hospital today with a chief complaint of nausea and vomiting. Patient reported that she has been having multiple episodes of nausea vomiting today; denies any blood in the vomitus. Denies any diarrhea. Reports she has a history of gastroparesis. Denies any chest pain or palpitations. patient reports that she uses cannabis and last use was 1 week ago; mentions she tolerated Reglan in the past. Reports her current episodes are more like her gastroparesis flare-up. Reports mild epigastric discomfort secondary to vomiting. Denies any numbness tingling or focal weakness. Mentions she had similar episodes in the past. Review of all other systems is negative except mentioned above ER course: Per ER team patient noted a mild abdominal discomfort; on labs noted to have leukocytosis; mildly elevated alk-phos -similar to prior values; lipase within normal limits; U tox positive for cannabis; patient was given antiemetics and fever challenge her; patient failed a p.o. challenge. Hence admitted to the hospital for further management. [facility] Medical History Anxiety delivery delivered Depression Diabetes type I Gastroparesis Insomnia PTSD (post-traumatic stress disorder) Surgical History Hx of cholecystectomy Social History Household Members: Spouse, Family and Children Housing: Apartment Do you presently have visiting nurse or other home services: No Patient Tobacco Use Status: Never used Tobacco Advance Directives: No Advance Directives Information Provided: No service: No Current occupational status: employed Meds Allergies Allergy/AdvReac Type Severity Reaction Status Date / Time diphenhydramine Allergy Mild ITCHY Verified 08/13/21 10:34 [From BENADRYL] ANXIOUS ciprofloxacin [From CIPRO] Allergy Unknown Anaphylaxis Verified 08/13/21 10:34 SHELLFISH Allergy Severe Anaphylaxis Uncoded 08/13/21 10:34 Shellfish Allergy Severe Anaphylaxis Uncoded 08/13/21 10:34 From CIPRO Allergy Unknown Anaphylaxis Uncoded 08/13/21 10:34 Home Medications Medication Instructions Recorded Confirmed Last Taken Type clonidine HCl 0.1 mg tablet 5 tab PO BEDTIME 09/04/20 08/13/21 08/12/21 History insulin lispro 100 unit/mL 0 - 100 unit SUBCUT DAILY 09/04/20 08/13/21 08/13/21 History subcutaneous solution (Humalog U-100 Insulin) insulin pump cartridge (Omnipod 09/04/20 09/04/20 Unknown History Dash Insulin Pod) lamotrigine 150 mg tablet 1 tab PO DAILY 08/13/21 08/13/21 08/13/21 History quetiapine 25 mg tablet 1 tab PO BEDTIME PRN 08/13/21 08/13/21 08/12/21 History sulfamethoxazole 800 1 tab PO DAILY 08/13/21 08/13/21 Unknown History mg-trimethoprim 160 mg tablet Physical Exam Vital Signs and Narrative: Vital Signs: Last Vital Signs Temp 99.6 F 08/13/21 19:28 Pulse 106 H 08/13/21 19:28 Resp 18 08/13/21 19:28 BP 174/91 H 08/13/21 19:28 Pulse Ox 98 08/13/21 19:28 BMI result Body Mass Index 33.2 Gen: Appears be in no acute distress HEENT: NCAT, Moist mucosa. Pulmonary: Vesicular breath sounds, fair air entry CVS: Normal S1-S2 Abdomen: BS+, Soft, Nontender Extremities: Warm well perfused Neuro: Alert and awake. Results Labs CBC and Chem 7: 08/13/21 15:29 08/13/21 15:29 Labs: Laboratory Results - last 24 hr 08/13/21 08/13/21 08/13/21 15:29 15:29 16:16 MCV 87.9 MCH 30.2 MCHC 34.4 RDW 12.8 Plt Count 337 MPV 9.8 Immature Gran % (Auto) 0.5 H Neut % (Auto) 95.6 H Lymph % (Auto) 2.4 L [place] % (Auto) 1.4 L Eos % (Auto) 0.0 Baso % (Auto) 0.1 Lymph # (Auto) 0.4 L [place] # (Auto) 0.3 Eos # (Auto) 0.0 Baso # (Auto) 0.0 Abs Immat Gran (auto) 0.09 H Absolute Neuts (auto) 17.2 H Absolute Nucleated RBC 0.000 Nucleated RBC % (auto) 0.0 Smear Tech's Comments VERIFIED Anion Gap 19 Estim Creat Clear Calc 93.9 Estimated GFR > 60 Random Glucose 336 H Calcium 9.6 D Total Bilirubin 1.2 H Direct Bilirubin 0.5 AST 30 D ALT 49 H Alkaline Phosphatase 172 H Total Protein 8.4 H Albumin 4.6 Lipase < 4 L Urine Color YELLOW Urine Appearance CLEAR Urine pH 6.0 Ur Specific [place] 1.025 Urine Protein 3+ H Urine Glucose (UA) >=1000 H Urine Ketones >=80 Urine Blood TRACE Urine Nitrite NEG Ur Leukocyte Esterase NEG Urine RBC 0-2 Urine WBC 0 Ur Squamous Epith Cells TRACE Urine Bacteria TRACE Urine Test Urine Opiates Screen Urine Fentanyl Screen Ur Barbiturates Screen Ur Phencyclidine Scrn Ur Amphetamines Screen U Benzodiazepines Scrn Urine Cocaine Screen U Marijuana (THC) Screen 08/13/21 08/13/21 16:16 16:16 MCV MCH MCHC RDW Plt Count MPV Immature Gran % (Auto) Neut % (Auto) Lymph % (Auto) [place] % (Auto) Eos % (Auto) Baso % (Auto) Lymph # (Auto) [place] # (Auto) Eos # (Auto) Baso # (Auto) Abs Immat Gran (auto) Absolute Neuts (auto) Absolute Nucleated RBC Nucleated RBC % (auto) Smear Tech's Comments Anion Gap Estim Creat Clear Calc Estimated GFR Random Glucose Calcium Total Bilirubin Direct Bilirubin AST ALT Alkaline Phosphatase Total Protein Albumin Lipase Urine Color Urine Appearance Urine pH Ur Specific [place] Urine Protein Urine Glucose (UA) Urine Ketones Urine Blood Urine Nitrite Ur Leukocyte Esterase Urine RBC Urine WBC Ur Squamous Epith Cells Urine Bacteria Urine Test NEGATIVE Urine Opiates Screen Not Detected Urine Fentanyl Screen Not Detected Ur Barbiturates Screen Not Detected Ur Phencyclidine Scrn Not Detected Ur Amphetamines Screen Not Detected U Benzodiazepines Scrn Not Detected Urine Cocaine Screen Not Detected U Marijuana (THC) Screen POSITIVE H Assessment and Plan (1) Vomiting: Qualifiers: Nausea presence: with nausea Vomiting type: unspecified Qualified Code(s): R11.2 - Nausea with vomiting, unspecified Status: Acute (2) Diabetes mellitus with gastroparesis: Status: Acute Plan 36-year-old female with a past medical history of anxiety, depression, diabetes, diabetic gastro paresis, insomnia, PTSD; history of cannabis use; presented to the hospital today with a chief complaint of nausea and vomiting. Failed p.o. challenge in the ER. Admitted for possible cyclic vomiting syndrome. Nausea/ vomiting: Likely gastroparesis flare. Cyclic vomiting syndrome also in the differential given history of cannabis use. Supportive care Gentle IV fluids Reglan p.r.n. Advanced diet as tolerated Diabetes: patient on insulin pump. Will continue. Monitor fingerstick glucose and adjust as needed. History of anxiety/ depression / PTSD: Continue home clonidine. DVT prophylaxis: Lovenox Code status: Full code Quality Stroke Does the patient have a stroke diagnosis?: No VTE Prior VTE?: No VTE Risk Level:: Medical - moderate - high VTE Device Contraindication: Treatment Not Indicated VTE Drug Contraindication: N/A - Med Ordered
[2021-08-13] MEDS: Sodium Chloride 0.45 % 1,000 ML 100 ML IVCONT (20:31)
[2021-08-13] MEDS: Enoxaparin Sodium 40 MG/0.4 ML SYRINGE SUBCUT (21:28)
--- NOTE | 2021-08-13 21:28 | MHC.CM.PN ---
DORA 08/13. HCP/ Rodney Toure ([phone]). Not on file. Vax/boosted/[employer]. Employed. Lives with and children. Has an insulin pump and diabetic meter. No services. D/C plan is home without services. Family to transport. CM to follow for d/c needs.
[2021-08-13] MEDS: cloNIDine HCL 0.1 MG TABLET 0.5 MG PO (21:30)
[2021-08-13 22:14] LABS: COVID-19 Test Negative (Negative); IDNOW Serial# 55D5AD1C
[2021-08-14] VITALS: BP 103/62; PULSE 88; RESP 20; TEMP 36.8; O2SAT 97
[2021-08-14] MEDS: Sodium Chloride 0.45 % 1,000 ML 100 ML IVCONT (06:41)
[2021-08-14 06:53] LABS: MANUAL DIFF FLAG NO
[2021-08-14 07:09] LABS: Basophils Percent Auto 0.2 % (0-2); Eosinophils Percent Auto 0.1 % (0-4); Hematocrit 32.8 % (37.0-47.0); Imm Gran Abs Auto 0.05 X10*3/uL (0.00-0.03); Imm Gran Pct Auto 0.4 % (0.0-0.4); Lymphocytes Absolute Auto 1.8 X10*3/uL (1.2-4.9); Lymphocytes Percent Auto 15.1 % (20-40); Mean Corpuscular HGB Conc 33.5 g/dl (31.0-35.0); Mean Corpuscular Hemoglobin 30.1 pg (27.0-33.0); Mean Corpuscular Volume 89.6 fL (80.0-98.0); Mean Platelet Volume 10.1 fL (9.4-12.3); Monocytes Percent Auto 8.5 % (2-11); Neutrophils Absolute Auto 9.2 x10*3/uL (2.0-8.3); Neutrophils Percent Auto 75.7 % (45-73); Platelet Count 315 X10*3/uL (160-400); Red Blood Count 3.66 X10*6/uL (4.20-5.50); White Blood Count 12.2 X10*3/uL (4.8-10.8)
[2021-08-14 07:14] LABS: Anion Gap 10 (12-20); Blood Urea Nitrogen 13 mg/dL (9-16); Calcium 8.8 mg/dL (8.4-10.2); Carbon Dioxide 24 mmol/L (22-29); Chloride 106 mmol/L (96-108); Creatinine Clr Calc Pharmacy 111.5; Estimated Glomerular Filt Rate > 60; Glucose Random 193 mg/dL (60-115); Potassium 3.8 mmol/L (3.3-5.1); Sodium 136 mmol/L (135-145)
--- NOTE | 2021-08-14 08:45 | P.PNIM_ITS ---
Subjective Subjective Date of Service: 08/14/21 Interval History: nausea/vomiting Physical Exam Vital Signs: Vital Signs: Last Vital Signs Temp 98.3 F 08/14/21 00:00 Pulse 88 08/14/21 00:00 Resp 20 08/14/21 00:00 BP 103/62 08/14/21 00:00 Pulse Ox 97 08/14/21 00:00 BMI result Body Mass Index 33.2 Objective Data Active Medications Acetaminophen (Acetaminophen 325 Mg Tablet) 650 mg PO Q6H PRN PRN Reason: Pain, Mild (Pain Scale 1-3) Benzonatate (Benzonatate 100 Mg Capsule) 100 mg PO TID PRN PRN Reason: Cough Clonidine HCl (Clonidine Hcl 0.1 Mg Tablet) 0.5 mg PO BEDTIME [facility]; Protocol Last Admin: 08/13/21 21:30 Dose: 0.5 mg Documented by: LEIDY-STALK Dextrose (Dextrose 50 % 25 Gm/50 Ml Syringe) 25 gm IVPUSH Q15M PRN; Protocol PRN Reason: per Hypoglycemia Standing Ord. Enoxaparin Sodium (Enoxaparin Sodium 40 Mg/0.4 Ml Syringe) 40 mg SUBCUT Q24H [facility] Last Admin: 08/13/21 21:28 Dose: 40 mg Documented by: LEIDY-STALK Glucose (Glucose Gel 15 Gm Gel..Gram.) 15 gm PO Q15M PRN; Protocol PRN Reason: per Hypoglycemia Standing Ord. Sodium Chloride () 1,000 mls @ 100 mls/hr IVCONT .Q10H [facility] Last Admin: 08/14/21 06:41 Dose: 100 mls/hr Documented by: SEA Lamotrigine (Lamotrigine 100 Mg Tablet) 150 mg PO DAILY [facility] Melatonin (Melatonin 3 Mg Tablet) 6 mg PO BEDTIME PRN PRN Reason: Insomnia Metoclopramide HCl (Metoclopramide Hcl 10 Mg/2 Ml Vial) 5 mg IVPUSH Q6H PRN PRN Reason: Nausea and Vomiting Sodium Chloride (0.9 % Sodium Chloride Flush 3 Ml Syringe) 3 ml IVFLUSH QSHIFT [facility] Last Admin: 08/13/21 22:12 Dose: Not Given Documented by: SEA Non-Admin Reason: IV Running Temazepam (Temazepam 15 Mg Capsule) 15 mg PO BEDTIME PRN PRN Reason: Insomnia Labs CBC & Chem 7: 08/14/21 06:28 08/14/21 06:28 Labs: Laboratory Results - last 24 hr 08/13/21 08/13/21 08/13/21 15:29 15:29 16:16 MCV 87.9 MCH 30.2 MCHC 34.4 RDW 12.8 Plt Count 337 MPV 9.8 Immature Gran % (Auto) 0.5 H Neut % (Auto) 95.6 H Lymph % (Auto) 2.4 L [place] % (Auto) 1.4 L Eos % (Auto) 0.0 Baso % (Auto) 0.1 Lymph # (Auto) 0.4 L [place] # (Auto) 0.3 Eos # (Auto) 0.0 Baso # (Auto) 0.0 Abs Immat Gran (auto) 0.09 H Absolute Neuts (auto) 17.2 H Absolute Nucleated RBC 0.000 Nucleated RBC % (auto) 0.0 Smear Tech's Comments VERIFIED Anion Gap 19 Estim Creat Clear Calc 93.9 Estimated GFR > 60 Random Glucose 336 H Calcium 9.6 D Magnesium Total Bilirubin 1.2 H Direct Bilirubin 0.5 AST 30 D ALT 49 H Alkaline Phosphatase 172 H Total Protein 8.4 H Albumin 4.6 Lipase < 4 L Urine Color YELLOW Urine Appearance CLEAR Urine pH 6.0 Ur Specific [place] 1.025 Urine Protein 3+ H Urine Glucose (UA) >=1000 H Urine Ketones >=80 Urine Blood TRACE Urine Nitrite NEG Ur Leukocyte Esterase NEG Urine RBC 0-2 Urine WBC 0 Ur Squamous Epith Cells TRACE Urine Bacteria TRACE Urine Test Urine Opiates Screen Urine Fentanyl Screen Ur Barbiturates Screen Ur Phencyclidine Scrn Ur Amphetamines Screen U Benzodiazepines Scrn Urine Cocaine Screen U Marijuana (THC) Screen COVID-19 (THO) COVID-19 Clin Com 08/13/21 08/13/21 08/13/21 16:16 16:16 21:42 MCV MCH MCHC RDW Plt Count MPV Immature Gran % (Auto) Neut % (Auto) Lymph % (Auto) [place] % (Auto) Eos % (Auto) Baso % (Auto) Lymph # (Auto) [place] # (Auto) Eos # (Auto) Baso # (Auto) Abs Immat Gran (auto) Absolute Neuts (auto) Absolute Nucleated RBC Nucleated RBC % (auto) Smear Tech's Comments Anion Gap Estim Creat Clear Calc Estimated GFR Random Glucose Calcium Magnesium Total Bilirubin Direct Bilirubin AST ALT Alkaline Phosphatase Total Protein Albumin Lipase Urine Color Urine Appearance Urine pH Ur Specific [place] Urine Protein Urine Glucose (UA) Urine Ketones Urine Blood Urine Nitrite Ur Leukocyte Esterase Urine RBC Urine WBC Ur Squamous Epith Cells Urine Bacteria Urine Test NEGATIVE Urine Opiates Screen Not Detected Urine Fentanyl Screen Not Detected Ur Barbiturates Screen Not Detected Ur Phencyclidine Scrn Not Detected Ur Amphetamines Screen Not Detected U Benzodiazepines Scrn Not Detected Urine Cocaine Screen Not Detected U Marijuana (THC) Screen POSITIVE H COVID-19 (THO) Negative COVID-19 Clin Com See Note 08/14/21 08/14/21 08/14/21 06:28 06:28 06:28 MCV 89.6 MCH 30.1 MCHC 33.5 RDW 13.0 Plt Count 315 MPV 10.1 Immature Gran % (Auto) 0.4 Neut % (Auto) 75.7 H Lymph % (Auto) 15.1 L [place] % (Auto) 8.5 Eos % (Auto) 0.1 Baso % (Auto) 0.2 Lymph # (Auto) 1.8 [place] # (Auto) 1.0 Eos # (Auto) 0.0 Baso # (Auto) 0.0 Abs Immat Gran (auto) 0.05 H Absolute Neuts (auto) 9.2 H Absolute Nucleated RBC 0.000 Nucleated RBC % (auto) 0.0 Smear Tech's Comments Anion Gap 10 L Estim Creat Clear Calc 111.5 Estimated GFR > 60 Random Glucose 193 H Calcium 8.8 D Magnesium 2.0 Total Bilirubin Direct Bilirubin AST ALT Alkaline Phosphatase Total Protein Albumin Lipase Urine Color Urine Appearance Urine pH Ur Specific [place] Urine Protein Urine Glucose (UA) Urine Ketones Urine Blood Urine Nitrite Ur Leukocyte Esterase Urine RBC Urine WBC Ur Squamous Epith Cells Urine Bacteria Urine Test Urine Opiates Screen Urine Fentanyl Screen Ur Barbiturates Screen Ur Phencyclidine Scrn Ur Amphetamines Screen U Benzodiazepines Scrn Urine Cocaine Screen U Marijuana (THC) Screen COVID-19 (THO) COVID-19 Clin Com Assessment and Plan Plan 36-year-old female with a past medical history of anxiety, depression, diabetes, 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 ? Failed p.o. challenge in the ER.? Admitted for possible cyclic vomiting syndrome.? ? Nausea/ vomiting: Likely gastroparesis flare.? Cyclic vomiting syndrome also in the differential given history of cannabis use.? Supportive care Gentle IV fluids Reglan p.r.n. Advanced diet as tolerated Diabetes: patient on insulin pump.? Will continue.? Monitor fingerstick glucose and adjust as needed.? History of anxiety/ depression / PTSD: Continue home clonidine. DVT prophylaxis:? Lovenox Code status: Full code Quality Stroke Does the patient have a stroke diagnosis?: No VTE Prior VTE?: No VTE Risk Level:: Medical - moderate - high VTE Device Contraindication: Treatment Not Indicated VTE Drug Contraindication: N/A - Med Ordered
--- NOTE | 2021-08-14 11:56 | PC.NURSE ---
pt no longer NPO per Dr. Kennedy. pt passed po challenge, she denies nausea, no vomiting observed/reported.
--- NOTE | 2021-08-14 12:16 | PC.NURSE ---
pt has insulin pump, self administers insulin via pump. she does her poc using kenny on her cell phone.
--- NOTE | 2021-08-14 15:12 | PC.NURSE ---
Report given to JUAN Gerber. Pt will be transferred to room 345.
--- NOTE | 2021-08-14 15:29 | P.DS_ITS ---
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 Patient reported that she has been having multiple episodes of nausea vomiting today; denies any blood in the vomitus.? Denies any diarrhea.? Reports she has a history of gastroparesis.? Denies any chest pain or palpitations.? ?patient reports that she uses cannabis and last use was 1 week ago; mentions she tolerated Reglan in the past.? Reports her current episodes are more like her gastroparesis flare-up.? Reports mild epigastric discomfort secondary to vomiting. Denies any numbness tingling or focal weakness.? Mentions she had similar episodes in the past.? Hospital course: Patient came to the hospital because of nausea vomiting-likely has gastroparesis flare treated with supportive management including IV fluids, Reglan- seems to be improved tolerating diet, going home with PPI and p.r.n. Hakeem also added. Further management outpatient as per PCP Above management discussed with the patient in detail length she understand and in agreement with the above plan, time spent 50 minutes and 50% time spent on counseling. Significant findings: As above. Procedures performed: None. Treatment and response: As above. Complications: None. Time Spent with Patient Time attestation: Total time spent providing and/or coordinating discharge services: Discharge coordination time: Greater than 30 minutes Quality: Safe Use of Opioids Does Pt have an Active Cancer Diagnosis on the Problem List?: No Quality: Stroke Does the patient have a stroke diagnosis?: No Physical Exam Vital Signs: Vital Signs: Last Vital Signs Temp 98.3 F 08/14/21 00:00 Pulse 88 08/14/21 00:00 Resp 20 08/14/21 00:00 BP 103/62 08/14/21 00:00 Pulse Ox 97 08/14/21 00:00 BMI result Body Mass Index 33.2 Gen: Appears be in no acute distress HEENT:? NCAT,? Moist mucosa. Pulmonary:? Vesicular breath sounds, fair air entry CVS:? Normal S1-S2 Abdomen: BS+, Soft, Nontender Extremities:? Warm well perfused Neuro:? Alert and awake. DS: Data Data Completed and Pending Labs on day of discharge: Laboratory Results - last 24 hr 08/13/21 08/13/21 08/13/21 15:29 15:29 16:16 WBC 18.0 H RBC 4.70 Hgb 14.2 Hct 41.3 MCV 87.9 MCH 30.2 MCHC 34.4 RDW 12.8 Plt Count 337 MPV 9.8 Immature Gran % (Auto) 0.5 H Neut % (Auto) 95.6 H Lymph % (Auto) 2.4 L [place] % (Auto) 1.4 L Eos % (Auto) 0.0 Baso % (Auto) 0.1 Lymph # (Auto) 0.4 L [place] # (Auto) 0.3 Eos # (Auto) 0.0 Baso # (Auto) 0.0 Abs Immat Gran (auto) 0.09 H Absolute Neuts (auto) 17.2 H Absolute Nucleated RBC 0.000 Nucleated RBC % (auto) 0.0 Smear Tech's Comments VERIFIED Sodium 137 Potassium 4.1 D Chloride 102 Carbon Dioxide 20 L Anion Gap 19 BUN 6 L Creatinine 0.76 Estim Creat Clear Calc 93.9 Estimated GFR > 60 Random Glucose 336 H Calcium 9.6 D Magnesium Total Bilirubin 1.2 H Direct Bilirubin 0.5 AST 30 D ALT 49 H Alkaline Phosphatase 172 H Total Protein 8.4 H Albumin 4.6 Lipase < 4 L Urine Color YELLOW Urine Appearance CLEAR Urine pH 6.0 Ur Specific [place] 1.025 Urine Protein 3+ H Urine Glucose (UA) >=1000 H Urine Ketones >=80 Urine Blood TRACE Urine Nitrite NEG Ur Leukocyte Esterase NEG Urine RBC 0-2 Urine WBC 0 Ur Squamous Epith Cells TRACE Urine Bacteria TRACE Urine Test Urine Opiates Screen Urine Fentanyl Screen Ur Barbiturates Screen Ur Phencyclidine Scrn Ur Amphetamines Screen U Benzodiazepines Scrn Urine Cocaine Screen U Marijuana (THC) Screen COVID-19 (THO) COVID-19 Clin Com 08/13/21 08/13/21 08/13/21 16:16 16:16 21:42 WBC RBC Hgb Hct MCV MCH MCHC RDW Plt Count MPV Immature Gran % (Auto) Neut % (Auto) Lymph % (Auto) [place] % (Auto) Eos % (Auto) Baso % (Auto) Lymph # (Auto) [place] # (Auto) Eos # (Auto) Baso # (Auto) Abs Immat Gran (auto) Absolute Neuts (auto) Absolute Nucleated RBC Nucleated RBC % (auto) Smear Tech's Comments Sodium Potassium Chloride Carbon Dioxide Anion Gap BUN Creatinine Estim Creat Clear Calc Estimated GFR Random Glucose Calcium Magnesium Total Bilirubin Direct Bilirubin AST ALT Alkaline Phosphatase Total Protein Albumin Lipase Urine Color Urine Appearance Urine pH Ur Specific [place] Urine Protein Urine Glucose (UA) Urine Ketones Urine Blood Urine Nitrite Ur Leukocyte Esterase Urine RBC Urine WBC Ur Squamous Epith Cells Urine Bacteria Urine Test NEGATIVE Urine Opiates Screen Not Detected Urine Fentanyl Screen Not Detected Ur Barbiturates Screen Not Detected Ur Phencyclidine Scrn Not Detected Ur Amphetamines Screen Not Detected U Benzodiazepines Scrn Not Detected Urine Cocaine Screen Not Detected U Marijuana (THC) Screen POSITIVE H COVID-19 (THO) Negative COVID-19 Clin Com See Note 08/14/21 08/14/21 08/14/21 06:28 06:28 06:28 WBC 12.2 H RBC 3.66 L D Hgb 11.0 L D Hct 32.8 L D MCV 89.6 MCH 30.1 MCHC 33.5 RDW 13.0 Plt Count 315 MPV 10.1 Immature Gran % (Auto) 0.4 Neut % (Auto) 75.7 H Lymph % (Auto) 15.1 L [place] % (Auto) 8.5 Eos % (Auto) 0.1 Baso % (Auto) 0.2 Lymph # (Auto) 1.8 [place] # (Auto) 1.0 Eos # (Auto) 0.0 Baso # (Auto) 0.0 Abs Immat Gran (auto) 0.05 H Absolute Neuts (auto) 9.2 H Absolute Nucleated RBC 0.000 Nucleated RBC % (auto) 0.0 Smear Tech's Comments Sodium 136 Potassium 3.8 Chloride 106 Carbon Dioxide 24 Anion Gap 10 L BUN 13 D Creatinine 0.64 Estim Creat Clear Calc 111.5 Estimated GFR > 60 Random Glucose 193 H Calcium 8.8 D Magnesium 2.0 Total Bilirubin Direct Bilirubin AST ALT Alkaline Phosphatase Total Protein Albumin Lipase Urine Color Urine Appearance Urine pH Ur Specific [place] Urine Protein Urine Glucose (UA) Urine Ketones Urine Blood Urine Nitrite Ur Leukocyte Esterase Urine RBC Urine WBC Ur Squamous Epith Cells Urine Bacteria Urine Test Urine Opiates Screen Urine Fentanyl Screen Ur Barbiturates Screen Ur Phencyclidine Scrn Ur Amphetamines Screen U Benzodiazepines Scrn Urine Cocaine Screen U Marijuana (THC) Screen COVID-19 (THO) COVID-19 Clin Com Discharge Plan Discharge Patient Disposition: Home, Self-Care Discharge Diagnosis: cyclic vomiting Referrals: Ariane West PA [Primary Care Provider] - 1 Week Discharge Medications: New omeprazole 20 mg capsule,delayed release(DR/EC) 20 mg PO BID Qty: 60 0RF ondansetron HCl 4 mg tablet 4 mg PO DAILY 4 Days Qty: 4 0RF Continued clonidine HCl 0.1 mg tablet 5 tab PO BEDTIME 0RF insulin lispro [Humalog U-100 Insulin] 100 unit/mL solution 0 - 100 unit subcut DAILY 0RF Rx Instructions: USES PUMP (DME) Omnipod Dash Pods (Gen 4) Cartridge subcut 0RF quetiapine 25 mg tablet 1 tab PO BEDTIME PRN (Reason: RESTLESSNESS) 0RF lamotrigine 150 mg tablet 1 tab PO DAILY 0RF sulfamethoxazole-trimethoprim 800-160 mg tablet 1 tab PO DAILY 0RF Discharge Orders: Discharge Order (Routine); Ordered 08/14/21 Ordered By: Queenie Kennedy Diet: advance to usual diet Activity on Discharge: As tolerated Stand Alone Forms: Patient Portal Discharge page Care Plan Goals: Patient came to the hospital because of nausea vomiting-likely has gastroparesis flare treated with supportive management including IV fluids, Reglan- seems to be improved tolerating diet, going home with PPI and p.r.n. Zofran also added. Further management outpatient as per PCP Health Concerns: Possible related to Gastroparesis- improving. If needed use PPI and Zofran p.r.n. Follow-up with PCP and consider outpatient GI evaluation as per PCP. Plan of Treatment: As above. Assessment: As above.
== END 2021-08-14 16:12 | disposition home or self-care (01) | DRG 74 ==
LOC: HO.ED 19:00 → HO.EDOVER 20:23 → HO.S3 08-14 14:46
PROVIDERS: Emergency Medicine Emergency Medical Services; Admitting Provider Hospitalist; Emergency Provider Emergency Medicine; PCP Physician Assistant; Visit Provider Internal Medicine
DX: E10.43 Type 1 diabetes mellitus with diabetic autonomic (poly)neuropathy (principal); K31.84 Gastroparesis; F41.9 Anxiety disorder, unspecified; F32.A Depression, unspecified; F43.10 Post-traumatic stress disorder, unspecified; Z20.822 Contact with and (suspected) exposure to COVID-19; Z91.013 Allergy to seafood; Z88.1 Allergy status to other antibiotic agents; Z88.8 Allergy status to other drugs, medicaments and biological substances; Z79.4 Long term (current) use of insulin; Z79.899 Other long term (current) drug therapy
CPT/HCPCS: 36415; 80048; 80076; 80307; 81001; 81025; 83690; 83735; 85025; 87635; 96361; 96365; 96375; 99218; 99285; J1650; J1790; J2405; J2550